=== PATIENT | female | born 1935 | race Caucasian/White ===

== ENCOUNTER 2018-04-01 07:57 | Emergency (ER) | payer OTHER ==
[~2018-04-01] VITALS: Ht 165.1 cm; Wt 77.1 kg
[~2018-04-01 07:57] MED LIST: ACETAMINOPHEN650 M5 PO; ALPRAZOLAM; ASPIR 8181 MG PO; BISACODYL SUPP10 MG RE; CARAFATE 1 GM TA1 G1 PO; CELEXA20 MG PO; CELEXA40 MG PO; COLACE100 MG PO; ENOXAPARIN80 MG/0.8 SUBQ; EVISTA PO; GLYCOLAX POWDER17 G1 PO; LIPITOR 20 MG T20 M1 PO; LISINOPRIL20 MG PO; MECLIZINE HCL25 M1 PO; NITROGLYCERIN0.4 MG SL; NORVASC 2.5 MG2.5 M1 PO; PLAVIX 75 MG TA75 MG; PROTONIX40 M2 PO; SENNA PO; SPIRONOLACTONE; TOPROL XL50 MG PO; XANAX 0.25 MG0.25 MG PO
[2018-04-01 08:31] LABS: ABSOLUTE EOSINOPHILS 0.1 thou/uL (0.0-0.7); ABSOLUTE LYMPHOCYTES 1.1 thou/uL (0.8-5.3); ABSOLUTE MONOCYTES 0.3 thou/uL (0.0-1.2); ABSOLUTE NEUTROPHILS 3.7 thou/uL (1.6-8.1); BASOPHILS 0.9 %; EOSINOPHILS 1.4 %; HEMATOCRIT 42.6 % (37.0-47.0); HEMOGLOBIN 14.1 gm/dL (12.0-15.0); MCH 29.6 pg (26.0-34.0); MCHC 33.1 g/dL (28.0-37.0); MCV 89.4 fL (80.0-100.0); MONOCYTES 6.3 %; MPV 8.7 fl. (7.2-11.1); NUCLEATED RBCS 0 /100WBC; PLATELET COUNT* 205 thou/uL (150-400); POLYS 70.4 %; RBC 4.77 mil/uL (4.20-5.00); RDW-CV 14.3 % (10.5-14.5); WBC 5.2 thou/uL (4.0-11.0)
[2018-04-01 08:33] LABS: PROTIME 10.2 Seconds (9.20-11.50)
[2018-04-01 09:14] LABS: ANION GAP 9 mmol/L (7-16); BUN 14 mg/dL (7-18); CALCIUM 9.6 mg/dL (8.5-10.1); CHLORIDE 102 mmol/L (98-107); CO2 27 mmol/L (21-32); GLUCOSE 179 mg/dL (70-99); SODIUM 138 mmol/L (136-145)
[2018-04-01 09:25] LABS: ALBUMIN 3.8 g/dL (3.4-5.0); ALKALINE PHOSPHATASE 69 U/L (46-116); LIPASE 414 U/L (73-393); NT-PRO BRAIN NAT PEPTIDE 380 pg/mL (<300); SGOT 23 U/L (15-37); SGPT 24 U/L (30-65); TOTAL BILIRUBIN 0.6 mg/dL (<0.1-1.0); TOTAL PROTEIN 7.1 g/dL (6.4-8.2); TROPONIN-I LEVEL <0.06 ng/mL (<0.06)
--- NOTE | 2018-04-01 10:24 | EKG ---
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 04/01/18 1024 08 08 Cory Franks MD, [facility] /EPI
[2018-04-01 11:03] VITALS: BP 147/70
== END 2018-04-01 11:04 | disposition home or self-care (01) ==
LOC: M.ERS 07:57
PROVIDERS: Emergency Medicine
DX: R07.89 Other chest pain (principal); I10 Essential (primary) hypertension; Z90.721 Acquired absence of ovaries, unilateral; Z88.8 Allergy status to other drugs, medicaments and biological substances; Z87.891 Personal history of nicotine dependence

== ENCOUNTER 2018-07-13 05:29 | Inpatient (IN) | payer OTHER ==
[~2018-07-13] VITALS: Ht 165.1 cm; Wt 78.9 kg
[2018-07-13 05:31] VITALS: BP 174/75
[2018-07-13 06:01] LABS: ABSOLUTE BASOPHILS 0.1 thou/uL (0.0-0.2); ABSOLUTE EOSINOPHILS 0.2 thou/uL (0.0-0.7); ABSOLUTE LYMPHOCYTES 2.3 thou/uL (0.8-5.3); ABSOLUTE MONOCYTES 0.5 thou/uL (0.0-1.2); ABSOLUTE NEUTROPHILS 2.6 thou/uL (1.6-8.1); EOSINOPHILS 4.1 %; HEMATOCRIT 42.1 % (37.0-47.0); LYMPHOCYTES 40.9 %; MCH 29.9 pg (26.0-34.0); MCHC 33.1 g/dL (28.0-37.0); MCV 90.1 fL (80.0-100.0); MONOCYTES 8.4 %; MPV 8.8 fl. (7.2-11.1); NUCLEATED RBCS 0 /100WBC; PLATELET COUNT* 180 thou/uL (150-400); POLYS 45.6 %; RBC 4.67 mil/uL (4.20-5.00); RDW-CV 15.3 % (10.5-14.5); WBC 5.7 thou/uL (4.0-11.0)
[2018-07-13 06:08] LABS: PROTIME 10.2 Seconds (9.20-11.50)
[2018-07-13 06:11] LABS: ANION GAP 8 mmol/L (7-16); BUN 23 mg/dL (7-18); CALCIUM 8.7 mg/dL (8.5-10.1); CHLORIDE 103 mmol/L (98-107); CO2 26 mmol/L (21-32); CREATININE 0.9 mg/dL (0.6-1.3); GLUCOSE 105 mg/dL (70-99); POTASSIUM 4.5 mmol/L (3.5-5.1); SODIUM 137 mmol/L (136-145)
[2018-07-13 06:22] LABS: ALBUMIN 3.5 g/dL (3.4-5.0); ALKALINE PHOSPHATASE 64 U/L (46-116); NT-PRO BRAIN NAT PEPTIDE 342 pg/mL (<300); SGOT 23 U/L (15-37); SGPT 25 U/L (30-65); TOTAL BILIRUBIN 0.5 mg/dL (<0.1-1.0); TROPONIN-I LEVEL <0.06 ng/mL (<0.06)
[2018-07-13 07:33] LABS: URINE COLOR YELLOW
[2018-07-13 07:34] LABS: URINE BILIRUBIN NEGATIVE (Negative); URINE BLOOD TRACE (Negative); URINE CLARITY CLEAR; URINE GLUCOSE-RANDOM NEGATIVE (Negative); URINE KETONES NEGATIVE (Negative); URINE LEUKOCYTES-REFLEX NEGATIVE (Negative); URINE NITRITE-REFLEX NEGATIVE (Negative); URINE PROTEIN NEGATIVE (Negative); URINE UROBILINOGEN 0.2 E.U./dl (0.2-1.0)
--- NOTE | 2018-07-13 08:36 | NUR ---
KASSI NOTIFIED UPON PT RETURN FROM CT.PT CONNECTED TO O2 AND REMAINS CONNECTED TO THE MONITOR IN WHICH SHE TRAVELED
[2018-07-13 09:31] VITALS: BP 140/65
[2018-07-13 10:00] VITALS: BP 155/62
--- NOTE | 2018-07-13 11:09 | EKG ---
[place] [address] ELECTROCARDIOGRAM REPORT Name: KATHRINE MAGAÑA Room: [address] ADM IN [facility]#: [id number] Admission: 07/13/18 Attend Phys: Leandra Da Silva MD Discharge: Date of : 35 Report #: [id number] THIS REPORT FOR: //name// [facility] ED Test Date: 2018-07-13 Test Time: 05:34:25 Pat Name: KATHRINE MAGAÑA Department: Room: 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 : 1935 Requested By: Debo Biswas Order Number: [id number] MD: Cory Franks Measurements Intervals [place] Rate: 77 P: 1 [place]: 163 QRS: 1 QRSD: 87 T: 97 QT: 385 QTc: 436 Interpretive Statements Sinus rhythm Probable LVH with secondary repol abnrm Compared to ECG 04/01/2018 08:03:07 Atrial premature complex(es) no longer present Electronically Signed On 07-13-2018 11:09:10 CDT by Cory Franks [email or web address] <ELECTRONICALLY SIGNED> By: Cory Franks MD, [facility] 07/13/18 1109 0534 0534 Cory Franks MD, [facility] /EPI
[2018-07-13 11:45] VITALS: BP 133/55
--- NOTE | 2018-07-13 13:44 | CON ---
[address] [address] CONSULTATION Name: KATHRINE MAGAÑA Margareth Room: [address] IN [facility]#: [id number] Admission: 07/13/18 Attend Phys: Leandra Da Silva MD Discharge: Date of : 35 Report #: [id number] THIS REPORT FOR: //name// CC: Leandra Arechiga MD DATE OF SERVICE: 07/13/2018 TYPE OF REPORT: Cardiology consultation. HISTORY OF THE PRESENT ILLNESS: The patient is an 82-year-old single white female who I was asked to see in the hospital today after she had an episode of chest warmness. The patient states that several years ago, she was feeling lightheaded. She was admitted to [place] and found to have 2-vessel coronary artery disease. She apparently underwent coronary artery bypass surgery, which she tolerated well. She has been followed by Dr. Webb every 6 months since that time. She is not very active but does go for walks in up stairs. She denies any exertional chest pain, dyspnea on exertion, palpitations or syncope. She does note that periodically she will get a warm sensation in her chest. It is not related to food or activity. She has had no trauma to her chest. It is not related to coughing. She has had no bleeding. She denies it is radiating to her jaw or arms. She will feel warm but denies being lightheaded or passing out. She has actually gone to the Emergency Room on a couple of occasions and sent home. She has been feeling well recently and then this morning, she was at home when she again had an episode where she felt gluing machine feeder her chest. Her heart was beating fast. She came to the Emergency Room and was admitted. PAST MEDICAL HISTORY: Otherwise significant for appendectomy, hysterectomy, cataract extraction, hypertension and hyperlipidemia. MEDICATIONS: Consists of aspirin, lisinopril, amlodipine, Celexa and Lipitor. ALLERGIES: She has no known drug allergies. FAMILY HISTORY: Positive for heart disease. SOCIAL HISTORY: She is , lives in [place]. Quit smoking years ago. No alcohol abuse. REVIEW OF SYSTEMS: She has had no history of stroke, asthma, peptic ulcer disease, liver disease or kidney disease. She has a skin cancer removed in the past. No psychiatric illness. No chronic skin condition. PHYSICAL EXAMINATION: [place] [address] CONSULTATION Name: KATHRINE MAGAÑA Room: [address]#: [id number] Admission: 07/13/18 Attend Phys: Leandra Da Silva MD Discharge: Date of : 35 Report #: [id number] GENERAL: Revealed an elderly female lying in bed. She appeared in no acute distress. VITAL SIGNS: She had a blood pressure of 140/60, pulse is 60 and she is afebrile. HEENT: She is anicteric and conjunctiva pink. Mucous membranes moist. NECK: Veins nondistended. No carotid bruits. Neck supple. CHEST: Clear to auscultation. CARDIOVASCULAR: Regular rate and rhythm. No murmur. ABDOMEN: Soft. EXTREMITIES: Had no edema. Dorsalis pedis pulse 2+ bilaterally. SKIN: Warm and dry. NEUROLOGICAL: Nonfocal. LYMPHATIC: No adenopathy. MUSCULOSKELETAL: No joint effusion. RADIOLOGICAL DATA: Her ECG on admission showed a sinus rhythm, left ventricular hypertrophy and repolarization changes. On the monitor, she was noted to have occasional PAC, occasional pause up to 1.8 seconds in duration. She did have an episode of a junctional rhythm. Workup she actually had previous echocardiogram here in 2015 that showed an ejection fraction of 50% with moderate tricuspid regurgitation. Workup in the Emergency Room, she had portable chest x-ray that showed no acute abnormality. CT scan of the chest using a PE protocol with contrast in the Emergency Room today showed no pulmonary embolus, only atelectasis. She had previous carotid Doppler study in 2015 that showed no significant stenosis. Previous CT scan of the head in 2015 showed atrophy, but no evidence of previous stroke. LABORATORY DATA: Sodium 137 and creatinine 0.9. Liver function studies were normal. Troponin 0.06. Her white blood cell count was 5.7 and hemoglobin 14. IMPRESSION AND RECOMMENDATIONS: 1. Chest heaviness. Rule out ischemia. Recommend Lexiscan Cardiolite. 2. Junctional rhythm. Possible sick sinus syndrome. The patient might require pacemaker. 3. Hypertension. The patient on a calcium winter and angiotensin-converting enzyme inhibitor. 4. Hyperlipidemia. The patient is on a statin drug. 5. Previous coronary artery bypass surgery. The patient does take aspirin 81 mg a day. 6. Palpitations. We will monitor for any arrhythmia. <ELECTRONICALLY SIGNED> By: Cory Franks MD, [facility] 07/13/18 1344 1035 [id number] Franks MD, [facility] /nt
--- NOTE | 2018-07-13 16:42 | CARDNUC ---
[place] [address] CARDIAC NUCLEAR IMAGING REPORT Name: KATHRINE MAGAÑA Room: [address] IN [facility]#: [id number] Admission: 07/13/18 Attend Phys: Leandra Da Silva, Discharge: Date of : 35 Date of Service: 07/13/18 1641 Report #: [id number] THIS REPORT FOR: //name// APPROVED REPORT Imaging Protocol: Rest Tc-99m/Stress Tc-99m 1 day Study performed: 07/13/2018 10:47:00 Indication: Chest pain Patient Location: In-Patient Stress Nurse: SOL Robles Tech:CANELO Castro Ht: 5 ft 5 in HR: 69 bpm BMI: 0 Rhythm: NSR Medical History Medical History: CAD s/p CABG Medications: Aspirin, Lisinopril, Amlodipine Allergies: Nitrates Cardiac Risk Factors: Age, HTN, Hyperlipidemia, FHX of CAD Previous Cardiac Procedures: CABG, PCI Resting Data Rest SPECT myocardial perfusion imaging was performed in supine position 30 minutes following the intravenous injection of 10.2 mCi of Tc-99m Sestamibi. Time of rest injection: 13:50 The images were gated to evaluate regional wall motion and calculate left ventricular ejection fraction. Administration Route: IV Administration Site: Right Arm Pharmacologic Stress Pharmacologic stress test was performed by injecting Regadenoson 0.4 mg IV push over 10-15 seconds immediately followed by the intravenous injection of 33.0 mCi of Tc-99m Sestamibi. Time of stress injection: 15:25 Administration Route: IV Administration Site: Right Arm Heart Rate at time of stress injection: 94 bpm. Gated Stress SPECT was performed 40 minutes after stress injection. The images were gated to evaluate regional [place] [address] CARDIAC NUCLEAR IMAGING REPORT Name: KATHRINE MAGAÑA Room: [address]#: [id number] Admission: 07/13/18 Attend Phys: Leandra Da Silva, Discharge: Date of : 35 Date of Service: 07/13/18 1641 Report #: [id number] left ventricular ejection fraction. Prone imaging was performed. Stress Test Details Stress Test: Pharmacologic stress testing performed using 0.4 mg of regadenoson per 5 mL given IV over 10 seconds. Reason for pharmacologic stress test: physical limitation. HR Max Heart Rate (APMHR): 138 bpm Resting HR: 69 bpm Target HR (85% APMHR): 117 bpm Max HR Achieved: 99 bpm % of APMHR: 71 Recovery HR: 94 bpm BP Resting BP: 171/91 mmHg Recovery BP: 166/79 mmHg ECG Resting ECG: Sinus Rhythm, normal EKG Stress ECG: Sinus Rhythm, normal EKG ST Change: None Arrhythmia: None Recovery ECG: Sinus Rhythm, normal EKG Recovery ST Change: None Recovery Arrhythmia: None Clinical The patient had no significant symptoms with Lexiscan infusion. Stress ECG Conclusion The baseline 12-lead EKG show sinus rhythm with no significant ST or T wave abnormalities. EKGs obtained during and post Lexiscan stress show sinus rhythm with no significant ST or T wave changes when compared to baseline. Study Quality Study: Good Artifact: No artifact Study Data At rest, the left ventricular ejection fraction was 70%.. Post stress, the left ventricular ejection was 73%.. TID = 1.03. [place] [address] CARDIAC NUCLEAR IMAGING REPORT Name: KATHRINE MAGAÑA Room: [address]#: [id number] Admission: 07/13/18 Attend Phys: Leandra Da Silva, Discharge: Date of : 35 Date of Service: 07/13/18 1641 Report #: [id number] Perfusion Normal left ventricular perfusion. Wall Motion Normal left ventricular wall motion. Nuclear Conclusion ECG Findings: negative for ischemia Clinical Findings: negative for ischemia Nuclear Findings: negative for ischemia Exercise Capacity: not assessed Left Ventricular Function: normal Risk Study: low Myocardial perfusion images show no defect to suggest infarct or ischemia. Left ventricular systolic function is normal on gated studies. This is a low risk study. <Conclusion> The baseline 12-lead EKG show sinus rhythm with no significant ST or T wave abnormalities. EKGs obtained during and post Lexiscan stress show sinus rhythm with no significant ST or T wave changes when compared to baseline. <ELECTRONICALLY SIGNED> By: Dennys Torres MD, FACC 07/13/181640 40 40 Dennys Torres MD, FACC /INF
--- NOTE | 2018-07-13 18:03 | NUR ---
PATIENT RESTING IN CHAIR. STRESS TESTING COMPLETED TODAY WITH LOW RISK FINDINGS. CONTINUE CARDIAC TELEMETRY TONIGHT AND POTENTIALLY GO HOME WITH HOLTER VEST. VITAL SIGNS STABLE. HOURY ROUNDING COMPLETD FOR PATIENT SAFETY.
[2018-07-13 20:00] VITALS: BP 122/57
[2018-07-14] VITALS: BP 125/63
--- NOTE | 2018-07-14 04:25 | NUR ---
ASSUMED PT CARE AT 1930. NURSING ASSESSMENT COMPLETED. 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 HOURLY ROUNDING COMPLETED, CALL LIGHT WITHIN REACH. VOICED NO CONCERNS.
[2018-07-14 05:11] VITALS: BP 139/60
[2018-07-14 05:49] LABS: CHOLESTEROL 147 mg/dL (<200); HDL CHOLESTEROL 74 mg/dL (>40); LDL CHOLESTEROL 61 mg/dL (<100); TRIGLYCERIDE 61 mg/dL (<150); VLDL 12 mg/dL (<40)
[2018-07-14 05:52] LABS: SERUM ASSESSMENT Clear
[2018-07-14 08:00] VITALS: BP 156/58
[2018-07-14 11:52] VITALS: BP 120/52
--- NOTE | 2018-07-14 12:19 | NUR ---
SW met with pt to complete initial assessment, introduce self, and SW role. Pt dtr in law visiting with pt. Pt alert, oriented, pleasant. Pt lives at home alone, pt ; pt dtr in law said that she updated that information yesterday. Pt independent with mobility and ADLs. Pt has a toilet riser but no other DME. Pt son Avery recently moved to [place]. Pt has another son in the area. Pt anticipates meeting with the senior mortgage underwriter today and then possibly receiving a pacemaker tomorrow depending on senior mortgage underwriter recommendations. Pt did not express any dc needs or questions at this time. SW to remain available to assist if needed.
[2018-07-14 16:00] VITALS: BP 132/59
--- NOTE | 2018-07-14 16:26 | 2DMMODE ---
[place] [address] 2 D/M-MODE ECHOCARDIOGRAM Name: KATHRINE MAGAÑA Room: [address] IN [facility]#: [id number] Admission: 07/13/18 Attend Phys: Leandra Da Silva, Discharge: Date of : 35 Date of Service: 07/14/18 1625 Report #: [id number] THIS REPORT FOR: //name// APPROVED REPORT Study performed: 07/14/2018 13:50:56 EXAM: Comprehensive 2D, Doppler, and color-flow Echocardiogram Patient Location: In-Patient Room #: [facility] Status: routine BSA: 1.86 HR: 69 bpm BP: 120/52 mmHg Rhythm: NSR Other Information Study Quality: Good Indications Bradycardia CAD Chest Pain 2D Dimensions LVEF(%): 83.60 (>50%) IVSd: 9.10 (7-11mm) LVOT Diam: 20.37 (18-24mm) LVDd: 47.95 mm PWd: 9.50 (7-11mm) Ascending Ao: 32.11 (22-36mm) LVDs: 22.73 (25-40mm) Aortic Root: 30.33 mm Foster's LVEF: 83.60 % Volumes Left Atrial Volume (Systole) LA ESV Index: 30.70 mL/m2 Aortic Valve AoV Peak Que.: 1.35 m/s AO Peak Gr.: 7.28 mmHg LVOT Max P.72 mmHg AO Mean Gr.: 4.18 mmHg LVOT Mean P.43 mmHg LVOT Max V: 1.20 m/s AO V2 VTI: 29.42 cm LVOT Mean V: 0.70 m/s SUSI (VTI): 2.89 cm2 LVOT V1 VTI: 26.06 cm AI [place]: 2.04 m/s2 [place] [address] 2 D/M-MODE ECHOCARDIOGRAM Name: KATHRINE MAGAÑA Room: [address] IN .R.#: [id number] Admission: 07/13/18 Attend Phys: Leandra Da Silva, Discharge: Date of : 35 Date of Service: 07/14/18 1625 Report #: [id number] AI PHT: 482.01 ms Mitral Valve E/A Ratio: 1.69 MV Decel. Time: 194.76 ms MV E Max Que.: 0.89 m/s MV PHT: 56.48 ms MVA (PHT): 3.90 cm2 TDI E/Lateral E': 8.09 E/Medial E': 8.90 Medial E' Que.: 0.10 m/s Lateral E' Que.: 0.11 m/s Pulmonary Valve PV Peak Que.: 0.99 m/s PV Peak Gr.: 3.92 mmHg Tricuspid Valve RAP Estimate: 5.00 mmHg TR Peak Gr.: 31.30 mmHg RVSP: 36.30 mmHg PA Pressure: 36.30 mmHg Left Ventricle The left ventricle is normal size. There is normal LV segmental wall motion. There is normal left ventricular wall thickness. Left ventricular systolic function is normal. LVEF is 65-70%. Transmitral Doppler flow pattern suggests impaired LV relaxation. Right Ventricle Right ventricle is dilated. The right ventricular systolic function is normal. Atria The left atrium size is normal. Right atrium is dilated. Aortic Valve The aortic valve is normal in structure. Moderate aortic regurgitation. There is no aortic valvular stenosis. Mitral Valve The mitral valve is normal in structure. Trace mitral regurgitation. No evidence of mitral valve stenosis. Tricuspid Valve The tricuspid valve is normal in structure. Moderate tricuspid regurgitation. Mild [place] [address] 2 D/M-MODE ECHOCARDIOGRAM Name: KATHRINE MAGAÑA Room: [address] IN [facility]#: [id number] Admission: 07/13/18 Attend Phys: Leandra Da Silva, Discharge: Date of : 35 Date of Service: 07/14/18 1625 Report #: [id number] Pulmonic Valve The pulmonary valve is normal in structure. Trace pulmonic regurgitation. Great Vessels The aortic root is normal in size. IVC is not well visualized. Pericardium There is no pericardial effusion. <Conclusion> The left ventricle is normal size. There is normal left ventricular wall thickness. Left ventricular systolic function is normal. LVEF is 65-70%. Transmitral Doppler flow pattern suggests impaired LV relaxation. Right atrium is dilated. Moderate aortic regurgitation. Trace mitral regurgitation. Moderate tricuspid regurgitation. Mild pulmonary hypertension. <ELECTRONICALLY SIGNED> By: Dennys Torres MD, FACC 07/14/18 1625 1625 1625 Dennys Torres MD, FACC /INF
--- NOTE | 2018-07-14 17:13 | EKG ---
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: : 1935 Requested By: Cory Franks Order Number: [id number] Reading MD: Cory Franks Measurements Intervals [place] Rate: 73 P: 25 [place]: 176 QRS: 25 QRSD: 87 T: 99 QT: 398 QTc: 439 Interpretive Statements Sinus rhythm septal infarct, old Nonspecific T abnormalities, lateral leads Compared to ECG 07/13/2018 05:34:25 no change Electronically Signed On 07-14-2018 17:13:23 CDT by Cory Franks [email or web address] <ELECTRONICALLY SIGNED> By: Cory Franks MD, [facility] 07/14/18 8883 8 8 Cory Franks MD, [facility] /EPI
[2018-07-14 20:00] VITALS: BP 136/60
[2018-07-15] VITALS (9 sets, daily range): BP systolic 102–148; BP diastolic 46–75
--- NOTE | 2018-07-15 04:38 | NUR ---
ASSUMED PT CARE AT 1930. NURSING ASSESSMENT COMPLETED AT START OF SHIFT. 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 HOURLY ROUNDING COMPLETED, CALL LIGHT WITHIN REACH. VOICED NO CONCERNS THIS SHIFT.
--- NOTE | 2018-07-15 10:18 | NUR ---
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
[2018-07-15] MEDS ORDERED: AMLODIPINE BESYL5 M1 PO (17:47)
--- NOTE | 2018-07-15 19:16 | CARD ---
[address] [address] CARDIAC CATH REPORT Name: KATHRINE MAGAÑA Margareth Room: [address] IN [facility]#: [id number] Admission: 07/13/18 Attend Phys: Leandra Da Silva MD Discharge: Date of : 35 Report #: [id number] THIS REPORT FOR: //name// APPROVED REPORT Study performed: 07/15/2018 12:20:39 Patient Status: In-Patient Room #: 212 Event Personnel: Cory Franks Family Engagement Specialist, Humera Rivera RN Building Associate, Ryanne Tobias Monitor, Hemanth Bauer (R) Scrub Exam: Insertion of Dual Chamber Permanent Pacemaker Indications: Sick Sinus Syndrome The patient is a 82 year-old female with a history of Dizziness and vertigo. Conscious Sedation Start time: 13:20 End Time: 15:05 Fentanyl 125 mcg Versed 6 mg Implanted Devices: permanent biotronic mri compatible pacemaker and leads Procedure The patient underwent informed consent. We discussed the details of the procedure including the risks, which include, but not limited to bleeding, infection, vascular damage, cardiac perforation, and pneumothorax. She understood these risks and was willing to proceed. As such, she was brought to the EP/Cardiac Catheterization laboratory in a fasting and sedated state and prepped and draped in a sterile fashion, received IV antibiotics prior to initiation of the procedure and a venogram was performed showing patency of the left axillary vein. The patient underwent conscious sedation, with no related complications. The patient was brought to the EP/Cardiac Catheterization laboratory and the left chest and shoulder were prepped and draped in a sterile manner. During this case, Fluoroscopy and low osmolar contrast were used for imaging. The left subclavian region was infiltrated with 2% Lidocaine subcutaneous anesthesia. A transverse incision was made in the left upper chest cavity. The subcutaneous pocket was formed [place] [address] CARDIAC CATH REPORT Name: KATHRINE MAGAÑA Room: [address] IN ..#: [id number] Admission: 07/13/18 Attend Phys: Leandra Da Silva MD Discharge: Date of : 35 Report #: [id number] venous access was achieved and an introducer sheath was inserted into the left Subclavian vein. Sheaths were positions using the modified Seldinger technique Through the introducer sheaths the atrial and ventricular lead wires were positioned in the right atrial appendage and right ventricular apex respectively. Utilizing fluoroscopic guidance, the atrial and ventricular lead wires were advanced over the wires and positioned in the right atria and right ventricle respectively. Capturing and sensing thresholds were verified. Electrode Parameters P Wave: 1.8 mv R Wave: 10.3 mv Atrial Threshold: 0.8 v @ 0.4 ms Ventricular Threshold: 1.2 v @ .4 ms Atrial Resistance: 487 ohm Ventricular Resistance: 838 Dual Chamber The atrial and ventricular leads were then secured using 0 silk sutures. The subcutaneous pocket was irrigated with ancef antibiotic solution.The atrial and ventricular leads were attached to the appropriate receptacles on the pulse generator and set screws firmly tightened to insure adequate contact and stability. The lead and pulse generator were placed into the subcutaneous pocket. Sharp and sponge counts were confirmed to be correct. At this time the pocket was closed subcutaneously with a 0 Vicryl and the skin was closed with a 4.0 Vicryl. The operative site was dressed in sterile fashion with skin affix and the patient was transferred to the floor in stable condition. Complications The patient tolerated the procedure well and there were no complications associated with the procedure. Findings Estimated Blood Loss: 5 cc Conclusion successful placement of a dual chamber pacemaker and leads <ELECTRONICALLY SIGNED> By: Cory Franks MD, [facility] 07/15/181915 15 15Daviizzy Franks MD, FAC /INF
[2018-07-16] VITALS: BP 137/61
--- NOTE | 2018-07-16 03:51 | NUR ---
ASSUMED PT CARE AT 1930. NURSING ASSESSMENT COMPLETED. SLING TO LEFT ARM IN PLACE. CONTINUES ON BEDREST UNTIL 8 AM PER CARDIOLOGY. 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 HOURLY ROUNDING COMPLETED, CALL LIGHT WITHIN REACH.
[2018-07-16 04:00] VITALS: BP 136/69
[2018-07-16 08:00] VITALS: BP 127/54
--- NOTE | 2018-07-16 08:38 | NUR ---
ASSUMED CARE OF PT AT 0730. PT RESTING IN BED. MED TRONIC AT BEDSIDE EVALUATING PACEMAKER. PT A&0X4, DENIES ANY PAIN OR SHORTNESS OF BREATH. PT IS EXCITED TO BE OFF BEDREST THIS AM. PT TRACING A PACED RHYTHM ON THE LEAD PASTOR. ON RA SAT UPPER 90'S. PT UP SBA TO BATHROOM. SLING TO LUE- NWB LUE AND PT EDUCATED ON NOT LIFTING LUE ABOVE SHOULDER FOR 7 DAYS. PACEMAKER INCISION TO LEFT CHEST C/D/I. PT GOAL FOR TODAY IS CXR THIS AM AND DISCHARGE PLANNING. AM ASSESSMENT CHARTED. MEDICATIONS PER JAN. PT REPOSITIONS SELF. HOURLY ROUNDING OBSERVED. BED IN LOW POSITION. CALL LIGHT WITHIN REACH. WILL CONTINUE PLAN OF CARE.
[2018-07-16 10:47] VITALS: BP 127/54
--- NOTE | 2018-07-16 13:11 | NUR ---
DISCHARGE ORDERS RECEIVED. DISCHARGE INSTRUCTIONS, CARE NOTES AND FOLLOW UP APPTS GIVEN TO PT. PT COMMUNICATES UNDERSTANDING OF DISCHARGE TEACHING. IV'S AND STONE PLANER REMOVED. PT DISCHARGED WITH ALL BELONGINGS AND PAPERWORK VIA WHEELCHAIR WITH NURSING STAFF TO DAUGHTERS OWN PERSONAL VEHICLE.
--- NOTE | 2018-07-16 15:46 | EKG ---
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: : 1935 Requested By: Cory Franks Order Number: [id number] Jennifer MD: Dennys Torres Measurements Intervals [place] Rate: 65 P: 37 [place]: 180 QRS: 13 QRSD: 88 T: 84 QT: 415 QTc: 432 Interpretive Statements Sinus rhythm Compared to ECG 07/14/2018 09:19:35 Myocardial infarct finding no longer present T-wave abnormality no longer present Electronically Signed On 07-16-2018 15:46:05 CDT by Dennys Torres [email or web address] <ELECTRONICALLY SIGNED> By: Dennys Torres MD, [facility] 07/16/18 1546 0844 0844 Dennys Torres MD, [facility] /EPI
--- NOTE | 2018-07-16 15:46 | EKG ---
[place] [address] ELECTROCARDIOGRAM REPORT Name: KATHRINE MAGAÑA Room: [address] IN M.R.#: [id number] Admission: 07/13/18 Attend Phys: Leandra Da Silva MD Discharge: 07/16/18 Date of : 35 Report #: [id number] THIS REPORT FOR: //name// [facility] Test Date: 2018-07-16 Test Time: 08:45:34 Pat Name: KATHRINE MAGAÑA Department: Room: [address] Gender: F Cnc Service Technician: : 1935 Requested By: Cory Franks Order Number: [id number] MD: Dennys Torres Measurements Intervals [place] Rate: 70 P: [place]: 151 QRS: 16 QRSD: 90 T: 91 QT: 400 QTc: 432 Interpretive Statements Atrial-paced rhythm Compared to ECG 07/14/2018 09:19:35 Sinus rhythm no longer present Myocardial infarct finding no longer present T-wave abnormality no longer present Electronically Signed On 07-16-2018 15:46:12 CDT by Dennys Torres [email or web address] <ELECTRONICALLY SIGNED> By: Dennys Torres MD, FACC 07/16/18 1546 0845 0845 Dennys Torres MD, [facility] /EPI
== END 2018-07-16 13:11 | disposition home or self-care (01) | DRG 243 ==
LOC: M.ERS 05:29 → M.TBA-ER 08:57 → M.2W 08:57
PROVIDERS: Emergency Medicine; Internal Medicine Cardiovascular Disease; ADMIT Internal Medicine
PROC: 02H63JZ Insertion of Pacemaker Lead into Right Atrium, Percutaneous Approach (ICD-10-PCS; principal; 2018-07-15)
PROC: 0JH606Z Insertion of Pacemaker, Dual Chamber into Chest Subcutaneous Tissue and Fascia, Open Approach (ICD-10-PCS; principal; 2018-07-15)
PROC: 02HK3JZ Insertion of Pacemaker Lead into Right Ventricle, Percutaneous Approach (ICD-10-PCS; principal; 2018-07-15)
DX: I49.5 Sick sinus syndrome (principal); J98.11 Atelectasis; R07.9 Chest pain, unspecified; I10 Essential (primary) hypertension; I25.10 Atherosclerotic heart disease of native coronary artery without angina pectoris; E78.5 Hyperlipidemia, unspecified; I25.2 Old myocardial infarction; Z95.1 Presence of aortocoronary bypass graft; Z90.49 Acquired absence of other specified parts of digestive tract; Z90.710 Acquired absence of both cervix and uterus; Z87.891 Personal history of nicotine dependence; Z90.721 Acquired absence of ovaries, unilateral; Z79.82 Long term (current) use of aspirin; Z79.899 Other long term (current) drug therapy; Z88.8 Allergy status to other drugs, medicaments and biological substances; Z82.49 Family history of ischemic heart disease and other diseases of the circulatory system

== ENCOUNTER 2018-08-10 04:51 | Emergency (ER) | payer OTHER ==
[~2018-08-10] VITALS: Ht 165.1 cm; Wt 77.1 kg
[~2018-08-10 04:51] MED LIST changes: +AMLODIPINE BESYL5 M1 PO
[2018-08-10 05:39] LABS: ABSOLUTE BASOPHILS 0.1 thou/uL (0.0-0.2); ABSOLUTE EOSINOPHILS 0.2 thou/uL (0.0-0.7); ABSOLUTE LYMPHOCYTES 1.6 thou/uL (0.8-5.3); ABSOLUTE MONOCYTES 0.5 thou/uL (0.0-1.2); ABSOLUTE NEUTROPHILS 2.9 thou/uL (1.6-8.1); EOSINOPHILS 4.6 %; HEMATOCRIT 39.3 % (37.0-47.0); HEMOGLOBIN 12.9 gm/dL (12.0-15.0); LYMPHOCYTES 30.6 %; MCH 29.2 pg (26.0-34.0); MCHC 32.8 g/dL (28.0-37.0); MONOCYTES 8.8 %; MPV 8.1 fl. (7.2-11.1); NUCLEATED RBCS 0 /100WBC; PLATELET COUNT* 181 thou/uL (150-400); RBC 4.42 mil/uL (4.20-5.00); RDW-CV 14.1 % (10.5-14.5); WBC 5.3 thou/uL (4.0-11.0)
[2018-08-10 05:53] LABS: URINE BILIRUBIN NEGATIVE (Negative); URINE BLOOD TRACE (Negative); URINE CLARITY CLEAR; URINE COLOR YELLOW; URINE GLUCOSE-RANDOM NEGATIVE (Negative); URINE KETONES NEGATIVE (Negative); URINE LEUKOCYTES-REFLEX NEGATIVE (Negative); URINE NITRITE-REFLEX NEGATIVE (Negative); URINE PROTEIN NEGATIVE (Negative); URINE SPECIFIC GRAVITY 1.015 (1.005-1.030); URINE UROBILINOGEN 0.2 E.U./dl (0.2-1.0)
[2018-08-10 05:58] LABS: CALCIUM 8.9 mg/dL (8.5-10.1); CREATININE 0.9 mg/dL (0.6-1.3); POTASSIUM 3.9 mmol/L (3.5-5.1)
[2018-08-10 06:03] LABS: ALBUMIN 3.3 g/dL (3.4-5.0); TOTAL BILIRUBIN 0.4 mg/dL (<0.1-1.0); TOTAL PROTEIN 6.3 g/dL (6.4-8.2)
[2018-08-10 06:16] VITALS: BP 129/61
--- NOTE | 2018-08-10 09:25 | EKG ---
[place] [address] ELECTROCARDIOGRAM REPORT Name: KATHRINE MAGAÑA [id number] Admission: 08/10/18 Attend Phys: Discharge: 08/10/18 Date of : 35 Report #: [id number] THIS REPORT FOR: //name// [facility] ED Test Date: 2018-08-10 Test Time: 05:23:30 Pat Name: KATHRINE MAGAÑA Department: Room: Gender: F Hematologist: ALFREDO : 1935 Requested By: Debo Biswas Order Number: [id number] MD: Cory Franks Measurements Intervals [place] Rate: 72 P: [place]: 200 QRS: 8 QRSD: 89 T: 59 QT: 411 QTc: 450 Interpretive Statements Atrial-paced rhythm Probable anteroseptal infarct, old Compared to ECG 07/16/2018 08:45:34 no change Electronically Signed On 08-10-2018 9:25:26 CDT by Cory Franks [email or web address] <ELECTRONICALLY SIGNED> By: Cory Franks MD, [facility] 08/10/18 0925 2 2 Croy Franks MD, FACC /EPI
== END 2018-08-10 06:16 | disposition home or self-care (01) ==
LOC: M.ERS 04:51
PROVIDERS: Emergency Medicine
DX: I10 Essential (primary) hypertension (principal); Z95.1 Presence of aortocoronary bypass graft; Z87.891 Personal history of nicotine dependence; Z88.8 Allergy status to other drugs, medicaments and biological substances

== ENCOUNTER 2018-08-26 03:17 | Observation (INO) | payer OTHER ==
[~2018-08-26] VITALS: Ht 165.1 cm; Wt 82.6 kg
[2018-08-26 03:21] VITALS: BP 186/88
[2018-08-26 03:56] LABS: ABSOLUTE EOSINOPHILS 0.1 thou/uL (0.0-0.7); ABSOLUTE LYMPHOCYTES 1.1 thou/uL (0.8-5.3); ABSOLUTE MONOCYTES 0.6 thou/uL (0.0-1.2); BASOPHILS 0.8 %; HEMATOCRIT 41.4 % (37.0-47.0); HEMOGLOBIN 13.5 gm/dL (12.0-15.0); LYMPHOCYTES 19.1 %; MCH 29.4 pg (26.0-34.0); MCHC 32.6 g/dL (28.0-37.0); MCV 89.9 fL (80.0-100.0); MONOCYTES 9.7 %; MPV 8.2 fl. (7.2-11.1); NUCLEATED RBCS 0 /100WBC; PLATELET COUNT* 200 thou/uL (150-400); POLYS 68.4 %; RBC 4.61 mil/uL (4.20-5.00); RDW-CV 14.3 % (10.5-14.5); WBC 5.9 thou/uL (4.0-11.0)
[2018-08-26 04:05] LABS: ANION GAP 6 mmol/L (7-16); BUN 17 mg/dL (7-18); CALCIUM 9.2 mg/dL (8.5-10.1); CHLORIDE 103 mmol/L (98-107); CO2 28 mmol/L (21-32); CREATININE 0.9 mg/dL (0.6-1.3); GLUCOSE 123 mg/dL (70-99); SODIUM 137 mmol/L (136-145)
[2018-08-26 04:10] LABS: PROTIME 10.7 Seconds (9.20-11.50)
[2018-08-26 04:16] LABS: ALBUMIN 3.7 g/dL (3.4-5.0); ALKALINE PHOSPHATASE 70 U/L (46-116); NT-PRO BRAIN NAT PEPTIDE 384 pg/mL (<300); SGOT 22 U/L (15-37); SGPT 22 U/L (30-65); TOTAL BILIRUBIN 0.5 mg/dL (<0.1-1.0); TOTAL PROTEIN 6.8 g/dL (6.4-8.2); TROPONIN-I LEVEL <0.06 ng/mL (<0.06)
[2018-08-26] MEDS ORDERED: PEPCID20 MG PO (09:34)
[2018-08-26 09:35] VITALS: BP 143/61
[2018-08-26 10:17] VITALS: BP 143/61
--- NOTE | 2018-08-26 11:03 | EKG ---
[place] [address] ELECTROCARDIOGRAM REPORT Name: KATHRINE MAGAÑA Room: [address]R.#: [id number] Admission: 08/26/18 Attend Phys: Gregor Skelton Discharge: Date of : 35 Report #: [id number] THIS REPORT FOR: //name// [facility] ED Test Date: 2018-08-26 Test Time: 03:23:12 Pat Name: KATHRINE MAGAÑA Department: Room: [facility] Gender: F Geography Head: O : 1935 Requested By: Brenda Hanks Order Number: [id number] MD: Cory Franks Measurements Intervals [place] Rate: 85 P: 110 AR: 150 QRS: 11 QRSD: 85 T: 112 QT: 366 QTc: 436 Interpretive Statements Atrial-paced complexes septal infarct, old Compared to ECG 08/10/2018 05:23:30 atrial paced rhythm now noted Electronically Signed On 08-26-2018 11:02:51 CDT by Cory Franks [email or web address] <ELECTRONICALLY SIGNED> By: Cory Franks MD, [facility] 08/26/18 1102 0323 0323 Cory Franks MD, [facility] /EPI
--- NOTE | 2018-08-28 13:12 | CON ---
[address] [address] CONSULTATION Name: KATHRINE MAGAÑA Room: [address] Kojo [place]#: [id number] Admission: 08/26/18 Attend Phys: Gregor Skelton Discharge: 08/26/18 Date of : 35 Report #: [id number] THIS REPORT FOR: //name// CC: Cory Dugan DATE OF SERVICE: 08/26/2018 HISTORY OF PRESENT ILLNESS: The patient is an 83-year-old single white female who I was asked to see in the hospital today after she complained of a warm sensation in her chest. The patient has an extensive past medical history. Several years ago, she presented to [facility]. She is not sure why she was admitted. Apparently, she did not feel well. She was found to have coronary artery disease and apparently underwent 2-vessel coronary artery bypass surgery at [place]. The patient is not very active because of her age. Recently, she was having sensations where she would feel warm all over and lightheaded. She is admitted to [facility] on 07/12/2018 after she presented with an episode where she felt tube closing machine operator her chest. When she came to the Emergency Room, she was noted to have pauses up to 1.8 seconds of duration with episodes of a junctional rhythm. She underwent a nuclear stress test last month that showed ejection fraction of 70% with no evidence of ischemia. She had an echocardiogram done last month that showed ejection fraction of 65%, right atrial enlargement, moderate aortic insufficiency, moderate tricuspid insufficiency. I then implanted a permanent dual chamber pacemaker on 07/15/2018 when she was felt to have symptomatic bradycardia. She tolerated the procedure well. She actually underwent a CT scan of the chest, which showed no pulmonary embolus. Carotid Doppler study showed plaque formation. I actually saw her in the office a week later on 07/24/2018 and assessed her pacemaker. She was noted to have intermittent atrial pacing. There were normal thresholds or capture and sensing in both the atrium and ventricle. The pacemaker set at 60 beats per minute. She has had no more sensations of passing out. She denied any recent palpitations or shortness of breath. She awoke last night at 4 in the morning with a warm sensation in her chest. She denied any belching, blood in her stool. She denied any discomfort being related to food. There was no radiation to her arms, associated shortness of breath, diaphoresis, nausea. She drove herself to the Emergency Room and is being evaluated at this time. PAST MEDICAL HISTORY: Otherwise significant for previous appendectomy, hysterectomy, cataract extraction, hypertension, hyperlipidemia. MEDICATIONS: Consists of amlodipine, aspirin, atorvastatin, Celexa, lisinopril. ALLERGIES: She [place] [address] CONSULTATION Name: KATHRINE MAGAÑA Room: [address] [place]#: [id number] Admission: 08/26/18 Attend Phys: Gregor Skelton Discharge: 08/26/18 Date of : 35 Report #: [id number] FAMILY HISTORY: Her father had a heart attack. SOCIAL HISTORY: She is , lives in [place]. Quit smoking years ago. No alcohol abuse. REVIEW OF SYSTEMS: She has had no history of stroke, asthma, peptic ulcer disease, liver disease, kidney disease. She had a skin cancer removed in the past. No psychiatric illness. No chronic skin condition. PHYSICAL EXAMINATION: GENERAL: Revealed an elderly female, lying in bed. She appeared in no acute distress. VITAL SIGNS: She had a blood pressure of 150/70, pulse is 80, she is afebrile. HEENT: She was anicteric, conjunctiva pink. Mucous membranes moist. NECK: Neck veins nondistended. No carotid bruits. Neck supple. CHEST: Clear to auscultation. CARDIOVASCULAR: Regular rate and rhythm. ABDOMEN: Soft. EXTREMITIES: Had no edema. Dorsalis pedis pulse 2+ bilaterally. SKIN: Warm, dry. NEUROLOGIC: Nonfocal. LYMPHATICS: No adenopathy. MUSCULOSKELETAL: No joint effusion. RADIOLOGICAL DATA: ECG showed an atrial paced rhythm with nonspecific ST and T-wave changes. Her workup so far in the Emergency Room, she had portable chest x-ray that showed clear lung mena, normal pacemaker insertion. LABORATORY DATA: Sodium 137, creatinine 0.9. Liver function studies are normal. Troponin 0.06 on 2 sets. Her white blood cell count 5.9, hemoglobin 13.5. IMPRESSION AND RECOMMENDATIONS: 1. Warm sensation in her chest. No evidence of acute myocardial infarction. The patient had a stress test last month showing no ischemia. Suspect gastrointestinal. Recommend no further cardiac evaluation. 2. Hypertension. The patient is on a calcium winter and RAFFI inhibitor. 3. Sick sinus syndrome. Normal dual chamber pacemaker function. 4. Hyperlipidemia. The patient is on a statin drug. 5. Previous tobacco abuse. 6. Previous coronary artery bypass surgery. Nuclear stress test last month showed no ischemia. <ELECTRONICALLY SIGNED> By: Cory Franks MD, [facility] 08/28/18 1312 0908 1942David Cesar Franks MD, FACC /nt
== END 2018-08-26 10:15 | disposition home or self-care (01) ==
LOC: M.ERS 03:17 → M.TBA-ER 04:39
PROVIDERS: Personal Emergency Response Attendant; ADMIT Internal Medicine
DX: R07.89 Other chest pain (principal); I25.10 Atherosclerotic heart disease of native coronary artery without angina pectoris; I10 Essential (primary) hypertension; I25.2 Old myocardial infarction; I49.5 Sick sinus syndrome; E78.5 Hyperlipidemia, unspecified; Z95.1 Presence of aortocoronary bypass graft; Z98.890 Other specified postprocedural states; Z79.82 Long term (current) use of aspirin; Z95.0 Presence of cardiac pacemaker; Z90.710 Acquired absence of both cervix and uterus; Z87.891 Personal history of nicotine dependence; Z79.899 Other long term (current) drug therapy

== ENCOUNTER 2018-09-05 00:10 | Inpatient (IN) | payer OTHER ==
[~2018-09-05] VITALS: Ht 165.1 cm; Wt 74.4 kg
[2018-09-05] VITALS (7 sets, daily range): BP systolic 132–191; BP diastolic 56–81
[~2018-09-05 00:10] MED LIST changes: +PEPCID20 MG PO
[2018-09-05 00:35] LABS: ABSOLUTE BASOPHILS 0.1 thou/uL (0.0-0.2); ABSOLUTE EOSINOPHILS 0.2 thou/uL (0.0-0.7); ABSOLUTE LYMPHOCYTES 2.7 thou/uL (0.8-5.3); ABSOLUTE MONOCYTES 0.6 thou/uL (0.0-1.2); ABSOLUTE NEUTROPHILS 3.5 thou/uL (1.6-8.1); BASOPHILS 0.8 %; EOSINOPHILS 3.2 %; HEMATOCRIT 41.3 % (37.0-47.0); HEMOGLOBIN 13.6 gm/dL (12.0-15.0); LYMPHOCYTES 38.3 %; MCH 29.2 pg (26.0-34.0); MCHC 32.8 g/dL (28.0-37.0); MCV 88.9 fL (80.0-100.0); MPV 7.9 fl. (7.2-11.1); NUCLEATED RBCS 0 /100WBC; PLATELET COUNT* 230 thou/uL (150-400); POLYS 49.7 %; RBC 4.65 mil/uL (4.20-5.00); RDW-CV 14.3 % (10.5-14.5)
[2018-09-05 00:44] LABS: ANION GAP 9 mmol/L (7-16); BUN 15 mg/dL (7-18); CALCIUM 9.4 mg/dL (8.5-10.1); CHLORIDE 102 mmol/L (98-107); CO2 28 mmol/L (21-32); GLUCOSE 103 mg/dL (70-99); SODIUM 139 mmol/L (136-145)
[2018-09-05 00:47] LABS: PROTIME 10.5 Seconds (9.20-11.50)
[2018-09-05 00:55] LABS: ALBUMIN 3.7 g/dL (3.4-5.0); ALKALINE PHOSPHATASE 70 U/L (46-116); NT-PRO BRAIN NAT PEPTIDE 372 pg/mL (<300); SGOT 22 U/L (15-37); SGPT 23 U/L (30-65); TOTAL BILIRUBIN 0.5 mg/dL (<0.1-1.0); TROPONIN-I LEVEL <0.06 ng/mL (<0.06)
[2018-09-05 01:21] LABS: URINE BILIRUBIN NEGATIVE (Negative); URINE BLOOD NEGATIVE (Negative); URINE CLARITY CLEAR; URINE COLOR YELLOW; URINE GLUCOSE-RANDOM NEGATIVE (Negative); URINE KETONES NEGATIVE (Negative); URINE LEUKOCYTES-REFLEX NEGATIVE (Negative); URINE NITRITE-REFLEX NEGATIVE (Negative); URINE PROTEIN NEGATIVE (Negative); URINE UROBILINOGEN 0.2 E.U./dl (0.2-1.0)
--- NOTE | 2018-09-05 04:57 | NUR ---
RECEIVED REPORT FROM ED NURSE. PT TRANSFERRED TO 225. PT A&OX4. VSS. ADMISSION HISTORY AND PHYSICAL ASSESSMENT COMPLETED AND CHARTED. PT ON O2 AT 2L WITH 97% O2 SAT. PT TRACING SR ON TELE. PT UP STANDBY TO RESTROOM. DENIES ANY PAIN OR DISCOMFORT. ORIENTED TO ROOM & CALL LIGHT. DENIES ANY PAIN OR DISCOMFORT. CALL LIGHT WITHIN REACH. BED IN LOW POSITION.
--- NOTE | 2018-09-05 15:11 | NUR ---
Pt was asleep when CM went to assess, will f/u later
--- NOTE | 2018-09-05 17:02 | NUR ---
PT REMAINED ALERT AND ORIENTED THIS SHIFT. PT DENIED ANY PAIN. PT IS UP AD JOSE. IV FLUIDS INFUSING AT 70ML/HR IN RT FA. PT HAD VENOUS DOPPLER COMPLETED AND FOUND NO DVT BUT A LEFT BAKERS CYST.PT IS NSR ON THE MONITOR. HOURLY ROUNDING COMPLETED. WILL CONTINUE TO MONITOR.
--- NOTE | 2018-09-05 17:53 | NUR ---
REVIEWED AND AGREE WITH ALL CHARTING AND ASSESSMENTS COMPLETED BY GERALD Blackmon RN.
[2018-09-06 00:36] VITALS: BP 133/72
[2018-09-06 03:27] VITALS: BP 165/87
[2018-09-06 04:37] LABS: HEMATOCRIT 39.3 % (37.0-47.0); HEMOGLOBIN 12.9 gm/dL (12.0-15.0); MCH 29.4 pg (26.0-34.0); MCV 89.2 fL (80.0-100.0); MPV 8.1 fl. (7.2-11.1); RBC 4.4 mil/uL (4.20-5.00); RDW-CV 14.4 % (10.5-14.5); WBC 5.1 thou/uL (4.0-11.0)
[2018-09-06 05:00] LABS: CALCIUM 8.6 mg/dL (8.5-10.1); CREATININE 0.8 mg/dL (0.6-1.3); POTASSIUM 3.9 mmol/L (3.5-5.1)
--- NOTE | 2018-09-06 06:54 | NUR ---
PATIENT HAS BEEN ANXIOUS MOST OF THE NIGHT. C/O CHEST PAIN. EKG DONE. NOTIFIED AND NEW ORDERS GIVEN. MEDICATIONS GIVEN ORDERED AND CHARTED. ANXIETY MEDICATION GIVEN VIA IV PUSH, NITRO GIVEN X 1 AND ASA GIVEN X 1. TROPONINS ORDERED. IV IN RIGHT FOREARM- NS @ 70ML/HR. VSS ON RA ALTHOUGH BP ELEVATED. PATIENT INSTRUCTED TO USE CALL LIGHT WHEN NEEDING ASSISTANCE. HOURLY ROUNDS MADE. WILL CONTINUE WITH PLAN OF CARE AND NURSING TO MONITOR.
[2018-09-06 08:00] VITALS: BP 160/85
--- NOTE | 2018-09-06 11:27 | NUR ---
ASSUMED CARE OF PATIENT THIS AM AT 0730. PATIENT IS ALERT AND ORIENTED X 4. SHE DENIES PAIN THIS AM. TELE SHOWS SR WITH A 1ST DEGREE AVB. PATIENT HAS BEEN CALM AND COOPERATIVE WITH CARE. NO FALLS OR INJURY. PATIENT IS PROGRESSING TOWARDS GOALS.
[2018-09-06 11:46] VITALS: BP 137/62
[2018-09-06 15:20] VITALS: BP 137/77
[2018-09-06 19:20] VITALS: BP 151/78
--- NOTE | 2018-09-06 22:15 | NUR ---
INITIAL ASSESSMENT COMPLETE. PT A&O X 4 AND ABLE TO VOICE ALL NEEDS. PT DENIES PAIN, N/V/D. VSS. PT DENIES ANY FURTHER NEEDS AT THIS TIME. CLWR.
[2018-09-07 00:37] VITALS: BP 139/73
[2018-09-07 04:00] VITALS: BP 156/78
--- NOTE | 2018-09-07 05:52 | NUR ---
PT RESTED WELL FOR MOST OF THIS SHIFT, ALTHOUGH PT BECAME VERY ANXIOUS AROUND 0300. PRN BENADRYL GIVEN PER PT REQUEST WITH GOOD RESULTS. PT HAS BEEN UP TO BR WITH SBA, STEADY GAIT. CLWR.
[2018-09-07 08:00] VITALS: BP 152/70
--- NOTE | 2018-09-07 09:54 | EKG ---
[place] [address] ELECTROCARDIOGRAM REPORT Name: GÓMEZKATHRINE B Room: [address] ADM IN [facility]#: [id number] Admission: 09/05/18 Attend Phys: Sheldon John MD Discharge: Date of : 35 Report #: [id number] THIS REPORT FOR: //name// [facility] ED Test Date: 2018-09-05 Test Time: 00:15:00 Pat Name: KATHRINE MAGAÑA Department: Room: [facility] Gender: F Space Operations: : 1935 Requested By: Debo Biswas Order Number: [id number] MD: Cory Franks Measurements Intervals [place] Rate: 87 P: 37 OR: 136 QRS: 8 QRSD: 91 T: 89 QT: 356 QTc: 429 Interpretive Statements Sinus rhythm septal infarct, age indeterminate Compared to ECG 08/26/2018 03:23:12 Myocardial infarct finding still present Electronically Signed On 09-07-2018 9:54:19 CLOTH PIECER by Cory Franks [email or web address] <ELECTRONICALLY SIGNED> By: Cory Franks MD, [facility] 09/07/18 0954 0015 0015 Cory Franks MD, [facility] /EPI
[2018-09-07] MEDS ORDERED: XARELTO15 MG PO (10:48)
--- NOTE | 2018-09-07 11:36 | EKG ---
[place] [address] ELECTROCARDIOGRAM REPORT Name: GÓMEZKATHRINE B Room: [address] IN [facility].#: [id number] Admission: 09/05/18 Attend Phys: Sheldon John MD Discharge: Date of : 35 Report #: [id number] THIS REPORT FOR: //name// [facility] Test Date: 2018-09-06 Test Time: 03:59:15 Pat Name: KATHRINE MAGAÑA Department: Room: [address] Gender: F Vp Global Marketing [employer]: AP : 1935 Requested By: Sheldon John Order Number: [id number] Reading MD: Cory Franks Measurements Intervals [place] Rate: 72 P: 31 WI: 183 QRS: 1 QRSD: 87 T: 59 QT: 418 QTc: 458 Interpretive Statements Sinus rhythm septal infarct, old Minimal ST depression, lateral leads Electronically Signed On 09-07-2018 11:36:25 MANUFACTURING DESIGN ENGINEER by Cory Franks [email or web address] <ELECTRONICALLY SIGNED> By: Cory Franks MD, [facility] 09/07/18 1136 0359 0359 Cory Franks MD, FACC /EPI
--- NOTE | 2018-09-07 11:47 | EKG ---
[place] [address] ELECTROCARDIOGRAM REPORT Name: KATHRINE MAGAÑA Room: [address] ADM IN ..#: [id number] Admission: 09/05/18 Attend Phys: Sheldon John MD Discharge: Date of : 35 Report #: [id number] THIS REPORT FOR: //name// [facility] Test Date: 2018-09-07 Test Time: 08:43:00 Pat Name: KATHRINE MAGAÑA Department: Room: [address] Gender: F Glove Examiner: : 1935 Requested By: Leandra Da Silva Order Number: [id number] Reading MD: Cory Franks Measurements Intervals [place] Rate: 78 P: [place]: 209 QRS: -3 QRSD: 82 T: 78 QT: 389 QTc: 444 Interpretive Statements sinus rhythm Probable anteroseptal infarct, old Electronically Signed On 09-07-2018 11:47:32 MARINE FIREFIGHTER by Cory Franks [email or web address] <ELECTRONICALLY SIGNED> By: Cory Franks MD, [facility] 09/07/18 1147 0843 0843 Cory Franks MD, FACC /EPI
[2018-09-07 12:00] VITALS: BP 128/68
--- NOTE | 2018-09-07 13:29 | NUR ---
CALLED IN PRESCRIPTION FOR XARELTO WRITTEN TO PT[facility] ON [address] IS $21 FOR THE 15MG BID X 3 WEEKS AND $30 FOR THE 20MG DAILY X 6 MONTHS. WILL INFORM PT. AND GIVE HER A COUPON FOR XARELTO.
[2018-09-07 16:30] VITALS: BP 130/58
--- NOTE | 2018-09-07 16:34 | 2DMMODE ---
[place] [address] 2 D/M-MODE ECHOCARDIOGRAM Name: KATHRINE MAGAÑA Room: [address] IN [facility]#: [id number] Admission: 09/05/18 Attend Phys: Sheldon John, Discharge: Date of : 35 Date of Service: 09/07/18 1634 Report #: [id number] THIS REPORT FOR: //name// APPROVED REPORT Study performed: 09/07/2018 13:48:19 EXAM: Comprehensive 2D, Doppler, and color-flow Echocardiogram Patient Location: In-Patient Room #: [facility] Status: routine BSA: 1.82 HR: 71 bpm BP: 156/78 mmHg Other Information Study Quality: Good Indications Pulmonary Embolism 2D Dimensions IVSd: 10.14 (7-11mm) LVOT Diam: 20.08 (18-24mm) LVDd: 35.95 mm PWd: 8.51 (7-11mm) Ascending Ao: 29.34 (22-36mm) LVDs: 23.53 (25-40mm) Aortic Root: 31.33 mm Volumes Left Atrial Volume (Systole) LA ESV Index: 12.60 mL/m2 Aortic Valve AoV Peak Que.: 1.25 m/s AO Peak Gr.: 6.26 mmHg LVOT Max P.69 mmHg AO Mean Gr.: 3.68 mmHg LVOT Mean P.61 mmHg LVOT Max V: 1.19 m/s AO V2 VTI: 24.90 cm LVOT Mean V: 0.74 m/s SUSI (VTI): 3.38 cm2 LVOT V1 VTI: 26.57 cm Mitral Valve E/A Ratio: 0.67 MV Decel. Time: 279.71 ms MV E Max Que.: 0.50 m/s MV PHT: 81.12 [place] [address] 2 D/M-MODE ECHOCARDIOGRAM Name: KATHRINE MAGAÑA Room: [address] IN [facility]#: [id number] Admission: 09/05/18 Attend Phys: Sheldon John, Discharge: Date of : 35 Date of Service: 09/07/18 1634 Report #: [id number] MVA (PHT): 2.71 cm2 TDI E/Lateral E': 5.56 E/Medial E': 7.14 Medial E' Que.: 0.07 m/s Lateral E' Que.: 0.09 m/s Pulmonary Valve PV Peak Que.: 0.90 m/s PV Peak Gr.: 3.23 mmHg Tricuspid Valve RAP Estimate: 5.00 mmHg TR Peak Gr.: 25.60 mmHg RVSP: 30.60 mmHg PA Pressure: 30.60 mmHg Left Ventricle The left ventricle is normal size. There is normal LV segmental wall motion. There is normal left ventricular wall thickness. Left ventricular systolic function is normal. The left ventricular ejection fraction is within the normal range. LVEF is 55-60%. Grade I - abnormal relaxation pattern. Right Ventricle The right ventricle is normal size. The right ventricular systolic function is normal. Pacemaker lead is present in the right ventricle. Atria The left atrium size is normal. Pacemaker lead is present in the right atrium. The right atrium size is normal. Aortic Valve Aortic valve leaflets are mildly thickened. Mild aortic regurgitation. There is no aortic valvular stenosis. Mitral Valve The mitral valve is normal in structure. Mild mitral regurgitation. No evidence of mitral valve stenosis. Tricuspid Valve The tricuspid valve is normal in structure. Mild tricuspid regurgitation. estimated pa pressure 35 mm Hg Pulmonic Valve The pulmonary valve is normal in structure. There is no pulmonic [place] [address] 2 D/M-MODE ECHOCARDIOGRAM Name: GÓMEZKATHRINE Margareth Room: [address] IN [facility]#: [id number] Admission: 09/05/18 Attend Phys: Sheldon John, Discharge: Date of : 35 Date of Service: 09/07/18 1634 Report #: [id number] Great Vessels The aortic root is normal in size. IVC is normal in size and collapses >50% with inspiration. Pericardium There is no pericardial effusion. <Conclusion> LVEF is 55-60%. Aortic valve leaflets are mildly thickened. Mild mitral regurgitation. Mild aortic regurgitation. Mild tricuspid regurgitation. estimated pa pressure 35 mm Hg <ELECTRONICALLY SIGNED> By: Cory Franks MD, FACC 09/07/18 1634 1634 1634 Cory Franks MD, FACC /INF
[2018-09-07 16:43] VITALS: BP 128/68
--- NOTE | 2018-09-08 12:30 | CON ---
[address] [address] CONSULTATION Name: KATHRINE MAGAÑA Room: [address] IN .R.#: [id number] Admission: 09/05/18 Attend Phys: Sheldon John MD Discharge: 09/07/18 Date of : 35 Report #: [id number] THIS REPORT FOR: //name// CC: Sheldon Arechiga REASON FOR CONSULTATION: Pulmonary embolus. HISTORY OF PRESENT ILLNESS: This is an 83-year-old female patient with a past medical history of pacemaker placement. She presented to the hospital with chest discomfort she described as a burning sensation a few hours prior to hospitalization. She is just not feeling right. She has some diaphoresis, although she had no lightheadedness or dizziness. She would not call her feeling as a pain. She did not think her breathing has changed. She has remote history of smoking in the past. She smoked maybe for 15 years, but that was long time ago and never had been on oxygen or inhalers at home, never carried a diagnosis of lung disease. Her workup in the ER suggested possible PE and she was started on anticoagulation. She had history of pacemaker placement, as mentioned above. She has history of CABG also in the past. When I saw her this morning, she was on 2 liter oxygen, comfortable, speaking in full sentences, no distress and reports that the discomfort in her chest had resolved. She has no lower extremity edema or pain and no family history of clotting disorder. PAST MEDICAL HISTORY: Appendectomy, hysterectomy, cataract extraction, hypertension, hyperlipidemia, CABG in the past and coronary artery disease. PAST SURGICAL HISTORY: As above. FAMILY HISTORY: Negative for thromboembolic disease. Positive for coronary artery disease. SOCIAL HISTORY: She is . Quit smoking long time ago. Does not drink alcohol. REVIEW OF SYSTEMS: Twelve-point review of system reviewed with the patient and negative, other than as mentioned above. HOME MEDICATIONS: Aspirin, lisinopril, citalopram, famotidine and atorvastatin. ALLERGIES: NITRATE. PHYSICAL EXAMINATION: VITAL SIGNS: On examination, she is on 2 liter oxygen with saturation more than 90%, blood pressure 147/68, breathing 16 times a minute, pulse rate of 84 and temperature 36.7. [place] [address] CONSULTATION Name: KATHRINE MAGAÑA Room: [address]#: [id number] Admission: 09/05/18 Attend Phys: Sheldon John MD Discharge: 09/07/18 Date of : 35 Report #: [id number] GENERAL: Awake, alert, oriented, not in pain, not in distress, speaks in full sentences. HEENT: Head normocephalic, atraumatic. Pupils reactive to light. Not pale, not jaundiced. External ears look healthy and normal. Oral cavity, moist mucous membrane. Mallampati of 2. NECK: Supple. Full range of movement. No masses felt. CHEST: Clear to auscultation. No wheezing, no crackles. No tenderness. HEART: S1, S2. ABDOMEN: Soft, lax, benign and nontender. Positive bowel sounds. No masses felt. EXTREMITIES: Lower extremity, no edema, no calf tenderness. SKIN: Normal for age and race. No rash. LYMPHATICS: No palpable lymph nodes. NEUROLOGIC: Moving 4 extremities spontaneously. No focal weakness. Cranial nerves are grossly normal. LABORATORY DATA: White blood cell count 7, hemoglobin 15.6 and platelets of 230,000. Her INR is 1. D-dimer elevated. Her creatinine is 1 with a potassium of 4, sodium 139 and BUN of 15. Her chest x-ray in the ER did not show acute cardiopulmonary process. Her CTA showed possible small PE in the right upper lobe, although the final report is pending. The ER note indicated possible PE. IMPRESSION: 1. Acute pulmonary embolus. 2. History of coronary artery disease. 3. Chest pain. PLAN: At this point, I agree with the Doppler ultrasound of the lower extremities for further evaluation. Continue anticoagulation. Recommend anticoagulation for 3-6 months and re-evaluate by repeating CTA of the chest. We can start weaning oxygen down and can switch her to p.o. anticoagulation. Thank you for the consult. <ELECTRONICALLY SIGNED> By: Suresh Jenkins MD 09/08/18 1230 0838 1219Suresh Jenkins MD /nt
== END 2018-09-07 17:00 | disposition home or self-care (01) | DRG 175 ==
LOC: M.ERS 00:10 → M.TBA-ER 01:51 → M.2W 01:51
PROVIDERS: Emergency Medicine; Internal Medicine; ADMIT Internal Medicine
DX: I26.99 Other pulmonary embolism without acute cor pulmonale (principal); J96.00 Acute respiratory failure, unspecified whether with hypoxia or hypercapnia; I10 Essential (primary) hypertension; E78.5 Hyperlipidemia, unspecified; F41.9 Anxiety disorder, unspecified; I25.10 Atherosclerotic heart disease of native coronary artery without angina pectoris; Z88.8 Allergy status to other drugs, medicaments and biological substances; I25.2 Old myocardial infarction; Z82.49 Family history of ischemic heart disease and other diseases of the circulatory system; Z87.891 Personal history of nicotine dependence; Z90.721 Acquired absence of ovaries, unilateral; Z95.1 Presence of aortocoronary bypass graft; Z95.0 Presence of cardiac pacemaker; Z79.82 Long term (current) use of aspirin; Z79.899 Other long term (current) drug therapy; Z98.49 Cataract extraction status, unspecified eye; Z90.710 Acquired absence of both cervix and uterus

== ENCOUNTER 2018-09-17 03:42 | Emergency (ER) | payer OTHER ==
[~2018-09-17] VITALS: Ht 165.1 cm; Wt 74.8 kg
[~2018-09-17 03:42] MED LIST changes: +XARELTO15 MG PO
[2018-09-17 04:31] LABS: ABSOLUTE BASOPHILS 0.1 thou/uL (0.0-0.2); ABSOLUTE EOSINOPHILS 0.2 thou/uL (0.0-0.7); ABSOLUTE LYMPHOCYTES 1.6 thou/uL (0.8-5.3); ABSOLUTE MONOCYTES 0.5 thou/uL (0.0-1.2); ABSOLUTE NEUTROPHILS 2.6 thou/uL (1.6-8.1); BASOPHILS 1.2 %; EOSINOPHILS 4.4 %; HEMATOCRIT 40.3 % (37.0-47.0); HEMOGLOBIN 13.2 gm/dL (12.0-15.0); LYMPHOCYTES 32.7 %; MCH 29.4 pg (26.0-34.0); MCHC 32.6 g/dL (28.0-37.0); MCV 90.1 fL (80.0-100.0); MPV 8.3 fl. (7.2-11.1); NUCLEATED RBCS 0 /100WBC; PLATELET COUNT* 200 thou/uL (150-400); POLYS 52.7 %; RBC 4.48 mil/uL (4.20-5.00); RDW-CV 14.6 % (10.5-14.5)
[2018-09-17 04:46] LABS: ANION GAP 9 mmol/L (7-16); BUN 16 mg/dL (7-18); CALCIUM 9.1 mg/dL (8.5-10.1); CHLORIDE 104 mmol/L (98-107); CO2 27 mmol/L (21-32); CREATININE 0.9 mg/dL (0.6-1.3); GLUCOSE 100 mg/dL (70-99); POTASSIUM 4.1 mmol/L (3.5-5.1); SODIUM 140 mmol/L (136-145)
[2018-09-17 04:55] LABS: APTT 36.9 Seconds (25.0-31.3); INR 1.2
[2018-09-17 05:04] LABS: ALBUMIN 3.3 g/dL (3.4-5.0); ALKALINE PHOSPHATASE 66 U/L (46-116); CK-MB MASS 1.6 ng/mL (<0.5-3.6); LIPASE 210 U/L (73-393); MAGNESIUM 1.9 mg/dL (1.8-2.4); NT-PRO BRAIN NAT PEPTIDE 335 pg/mL (<300); SGOT 18 U/L (15-37); SGPT 20 U/L (30-65); TOTAL BILIRUBIN 0.4 mg/dL (<0.1-1.0); TOTAL PROTEIN 6.3 g/dL (6.4-8.2); TROPONIN-I LEVEL <0.06 ng/mL (<0.06)
[2018-09-17 05:24] VITALS: BP 160/71
--- NOTE | 2018-09-17 17:28 | EKG ---
[place] [address] ELECTROCARDIOGRAM REPORT Name: KATHRINE MAGAÑA Room: [facility]#: [id number] Admission: 09/17/18 Attend Phys: Discharge: 09/17/18 Date of : 35 Report #: [id number] THIS REPORT FOR: //name// [facility] ED Test Date: 2018-09-17 Test Time: 03:46:31 Pat Name: KATHRINE MAGAÑA Department: Room: Gender: F Merchandising Coordinator: KYLEE : 1935 Requested By: Scooter Barrera Order Number: [id number] MD: Dennys Torres Measurements Intervals [place] Rate: 83 P: 88 HI: 173 QRS: 28 QRSD: 87 T: 105 QT: 360 QTc: 423 Interpretive Statements Sinus rhythm Anteroseptal infarct, old, possible Nonspecific T abnormalities, lateral leads Compared to ECG 09/07/2018 08:43:00 T-wave abnormality now present Myocardial infarct finding still present Electronically Signed On 09-17-2018 17:28:00 MARKET BASKET MAKER by Dennys Torres [email or web address] <ELECTRONICALLY SIGNED> By: Dennys Torres MD, FACC 09/17/18 1728 0346 0346 Dennys Torres MD, [facility] /EPI
== END 2018-09-17 05:25 | disposition home or self-care (01) ==
LOC: M.ERS 03:42
PROVIDERS: Family Medicine
DX: R00.2 Palpitations (principal); I10 Essential (primary) hypertension; Z87.891 Personal history of nicotine dependence; Z88.8 Allergy status to other drugs, medicaments and biological substances; I25.10 Atherosclerotic heart disease of native coronary artery without angina pectoris; Z95.1 Presence of aortocoronary bypass graft; Z90.721 Acquired absence of ovaries, unilateral

== ENCOUNTER 2018-09-27 01:49 | Emergency (ER) | payer OTHER ==
[~2018-09-27] VITALS: Ht 165.1 cm; Wt 74.8 kg
[2018-09-27 02:08] LABS: ABSOLUTE BASOPHILS 0.1 thou/uL (0.0-0.2); ABSOLUTE EOSINOPHILS 0.3 thou/uL (0.0-0.7); ABSOLUTE MONOCYTES 0.5 thou/uL (0.0-1.2); ABSOLUTE NEUTROPHILS 3.4 thou/uL (1.6-8.1); BASOPHILS 1.1 %; EOSINOPHILS 4.1 %; HEMATOCRIT 40.9 % (37.0-47.0); HEMOGLOBIN 13.5 gm/dL (12.0-15.0); LYMPHOCYTES 31.8 %; MCH 29.5 pg (26.0-34.0); MCHC 32.9 g/dL (28.0-37.0); MCV 89.5 fL (80.0-100.0); MONOCYTES 8.8 %; MPV 7.8 fl. (7.2-11.1); NUCLEATED RBCS 0 /100WBC; PLATELET COUNT* 223 thou/uL (150-400); POLYS 54.2 %; RBC 4.56 mil/uL (4.20-5.00); RDW-CV 14.7 % (10.5-14.5); WBC 6.2 thou/uL (4.0-11.0)
[2018-09-27 02:16] LABS: ANION GAP 9 mmol/L (7-16); BUN 20 mg/dL (7-18); CALCIUM 9.4 mg/dL (8.5-10.1); CHLORIDE 103 mmol/L (98-107); CO2 26 mmol/L (21-32); GLUCOSE 104 mg/dL (70-99); POTASSIUM 3.8 mmol/L (3.5-5.1); SODIUM 138 mmol/L (136-145)
[2018-09-27 02:19] LABS: INR 1.2; PROTIME 12.3 Seconds (9.20-11.50)
[2018-09-27 02:27] LABS: ALBUMIN 3.6 g/dL (3.4-5.0); ALKALINE PHOSPHATASE 67 U/L (46-116); LIPASE 236 U/L (73-393); NT-PRO BRAIN NAT PEPTIDE 249 pg/mL (<300); SGOT 19 U/L (15-37); SGPT 21 U/L (30-65); TOTAL BILIRUBIN 0.5 mg/dL (<0.1-1.0); TOTAL PROTEIN 6.7 g/dL (6.4-8.2); TROPONIN-I LEVEL <0.06 ng/mL (<0.06)
[2018-09-27 02:50] LABS: URINE BILIRUBIN NEGATIVE (Negative); URINE BLOOD TRACE (Negative); URINE CLARITY CLEAR; URINE COLOR YELLOW; URINE GLUCOSE-RANDOM NEGATIVE (Negative); URINE KETONES NEGATIVE (Negative); URINE LEUKOCYTES-REFLEX NEGATIVE (Negative); URINE NITRITE-REFLEX NEGATIVE (Negative); URINE PROTEIN NEGATIVE (Negative); URINE SPECIFIC GRAVITY <= 1.005 (1.005-1.030); URINE UROBILINOGEN 0.2 E.U./dl (0.2-1.0)
[2018-09-27 06:18] VITALS: BP 182/87
--- NOTE | 2018-09-27 12:18 | EKG ---
[place] [address] ELECTROCARDIOGRAM REPORT Name: KATHRINE MAGAÑA [id number] Admission: 09/27/18 Attend Phys: Discharge: 09/27/18 Date of : 35 Report #: [id number] THIS REPORT FOR: //name// [facility] ED Test Date: 2018-09-27 Test Time: 01:53:33 Pat Name: KATHRINEJAVON MAGAÑA Department: Room: Gender: F Research And Development Scientist: LINN : 1935 Requested By: Debo Biswas Order Number: [id number] MD: Orlando Allen Measurements Intervals [place] Rate: 82 P: [place]: 190 QRS: 2 QRSD: 87 T: 100 QT: 360 QTc: 421 Interpretive Statements a paced Probable anteroseptal infarct, old Nonspecific repol abnormality, lateral leads Compared to ECG 09/17/2018 03:46:31 Early repolarization now present Sinus rhythm no longer present T-wave abnormality no longer present Myocardial infarct finding still present Electronically Signed On 09-27-2018 12:18:29 PAYROLL TAX ANALYST by Orlando Allen [email or web address] <ELECTRONICALLY SIGNED> By: Orlando Allen MD, FACC 09/27/18 1218 0153 0153 Orlando Allen MD, FAC /EPI
--- NOTE | 2018-09-27 12:19 | EKG ---
[place] [address] ELECTROCARDIOGRAM REPORT Name: KATHRINE MAGAÑA Room: [facility]#: [id number] Admission: 09/27/18 Attend Phys: Discharge: 09/27/18 Date of : 35 Report #: [id number] THIS REPORT FOR: //name// [facility] ED Test Date: 2018-09-27 Test Time: 05:44:18 Pat Name: KATHRINEJAVON MAGAÑA Department: Room: Gender: F Aerial Photographer: TYRA : 1935 Requested By: Debo Biswas Order Number: [id number] Reading MD: Orlando Allen Measurements Intervals [place] Rate: 67 P: [place]: 192 QRS: 10 QRSD: 92 T: 66 QT: 407 QTc: 430 Interpretive Statements Atrial-paced complexes Probable anteroseptal infarct, old Compared to ECG 09/17/2018 03:46:31 Sinus rhythm no longer present T-wave abnormality no longer present Myocardial infarct finding still present Electronically Signed On 09-27-2018 12:18:54 MANAGER ADMINISTRATIVE by Orlando Allen [email or web address] <ELECTRONICALLY SIGNED> By: Orlando Allen MD, [facility] 09/27/18 1218 0544 0544 Orlando Allen MD, [facility] /EPI
== END 2018-09-27 06:19 | disposition home or self-care (01) ==
LOC: M.ERS 01:49
PROVIDERS: Emergency Medicine
DX: R07.89 Other chest pain (principal); I10 Essential (primary) hypertension; I25.10 Atherosclerotic heart disease of native coronary artery without angina pectoris; Z87.891 Personal history of nicotine dependence; Z88.8 Allergy status to other drugs, medicaments and biological substances; Z95.1 Presence of aortocoronary bypass graft; Z90.721 Acquired absence of ovaries, unilateral

== ENCOUNTER 2018-11-08 05:44 | Emergency (ER) | payer OTHER ==
[~2018-11-08] VITALS: Ht 165.1 cm; Wt 77.1 kg
[2018-11-08] MEDS ORDERED: NORVASC2.5 MG PO (05:58)
[2018-11-08] MEDS ORDERED: ELIQUIS5 MG PO (06:00)
[2018-11-08] MEDS ORDERED: VITAMIN D2000 UNIT PO (06:01)
[2018-11-08] MEDS ORDERED: GAS-X125 MG PO (06:02)
[2018-11-08 06:30] LABS: ABSOLUTE EOSINOPHILS 0.1 thou/uL (0.0-0.7); ABSOLUTE LYMPHOCYTES 1.3 thou/uL (0.8-5.3); ABSOLUTE MONOCYTES 0.5 thou/uL (0.0-1.2); ABSOLUTE NEUTROPHILS 2.4 thou/uL (1.6-8.1); BASOPHILS 0.9 %; HEMATOCRIT 41.2 % (37.0-47.0); HEMOGLOBIN 13.6 gm/dL (12.0-15.0); LYMPHOCYTES 30.4 %; MCH 29.7 pg (26.0-34.0); MCHC 33.1 g/dL (28.0-37.0); MCV 89.7 fL (80.0-100.0); MONOCYTES 10.7 %; MPV 8.2 fl. (7.2-11.1); NUCLEATED RBCS 0 /100WBC; PLATELET COUNT* 210 thou/uL (150-400); RBC 4.59 mil/uL (4.20-5.00); RDW-CV 14.7 % (10.5-14.5); WBC 4.4 thou/uL (4.0-11.0)
[2018-11-08 06:42] LABS: ANION GAP 8 mmol/L (7-16); BUN 24 mg/dL (7-18); CALCIUM 9.3 mg/dL (8.5-10.1); CHLORIDE 104 mmol/L (98-107); CO2 28 mmol/L (21-32); GLUCOSE 107 mg/dL (70-99); SODIUM 140 mmol/L (136-145)
[2018-11-08 06:46] LABS: INR 1.1; PROTIME 11.1 Seconds (9.20-11.50)
[2018-11-08 06:57] LABS: ALBUMIN 3.3 g/dL (3.4-5.0); ALKALINE PHOSPHATASE 59 U/L (46-116); LIPASE 142 U/L (73-393); NT-PRO BRAIN NAT PEPTIDE 236 pg/mL (<300); SGOT 21 U/L (15-37); SGPT 23 U/L (30-65); TOTAL BILIRUBIN 0.4 mg/dL (<0.1-1.0); TOTAL PROTEIN 6.5 g/dL (6.4-8.2); TROPONIN-I LEVEL <0.06 ng/mL (<0.06)
[2018-11-08] MEDS ORDERED: CARAFATE 1 GM TA1 G1 PO ×2 (08:13→08:24)
[2018-11-08 08:59] VITALS: BP 150/55
--- NOTE | 2018-11-08 10:17 | EKG ---
[place] [address] ELECTROCARDIOGRAM REPORT Name: KATHRINE MAGAÑA Room: [facility]#: [id number] Admission: 11/08/18 Attend Phys: Discharge: 11/08/18 Date of : 35 Report #: [id number] THIS REPORT FOR: //name// [facility] ED Test Date: 2018-11-08 Test Time: 05:54:10 Pat Name: KATHRINE MAGAÑA Department: Room: Gender: F Program Manufacturing Leader: JESSENIA : 1935 Requested By: Harshad Ahuja Order Number: [id number] MD: Cory Franks Measurements Intervals [place] Rate: 80 P: -23 [place]: 173 QRS: 8 QRSD: 84 T: 156 QT: 359 QTc: 415 Interpretive Statements Sinus rhythm artifact noted Probable anterior infarct, old Abnormal T, consider ischemia, lateral leads Compared to ECG 09/27/2018 05:44:18 T-wave abnormality now present Possible ischemia now present Myocardial infarct finding still present Electronically Signed On 11-08-2018 10:17:42 PROGRAMMING SPECIALIST by Cory Franks [email or web address] <ELECTRONICALLY SIGNED> By: Cory Franks MD, [facility] 11/08/18 1017 0554 0554 Cory Franks MD, [facility] /EPI
--- NOTE | 2018-11-08 10:18 | EKG ---
[place] [address] ELECTROCARDIOGRAM REPORT Name: KATHRINE MAGAÑA [id number] Admission: 11/08/18 Attend Phys: Discharge: 11/08/18 Date of : 35 Report #: [id number] THIS REPORT FOR: //name// [facility] ED Test Date: 2018-11-08 Test Time: 07:59:17 Pat Name: KATHRINE LINDERTERRY Department: Room: Gender: F Architectural Renderer: : 1935 Requested By: Martín Wright Order Number: [id number] MD: Cory Franks Measurements Intervals [place] Rate: 76 P: [place]: 200 QRS: 13 QRSD: 86 T: 104 QT: 390 QTc: 439 Interpretive Statements sinus rhythm Probable LVH with secondary repol abnrm Electronically Signed On 11-08-2018 10:18:31 SNOW MAKER by Cory Franks [email or web address] <ELECTRONICALLY SIGNED> By: Cory Franks MD, [facility] 11/08/18 1018 0759 0759 Cory Franks MD, [facility] /EPI
== END 2018-11-08 09:00 | disposition home or self-care (01) ==
LOC: M.ERS 05:44
PROVIDERS: Emergency Medicine
DX: R10.13 Epigastric pain (principal); R53.1 Weakness; I10 Essential (primary) hypertension; I25.10 Atherosclerotic heart disease of native coronary artery without angina pectoris; Z87.891 Personal history of nicotine dependence; Z88.8 Allergy status to other drugs, medicaments and biological substances; Z95.1 Presence of aortocoronary bypass graft; Z90.721 Acquired absence of ovaries, unilateral

== ENCOUNTER 2018-11-10 08:12 | Emergency (ER) | payer OTHER ==
[~2018-11-10] VITALS: Ht 165.1 cm; Wt 77.1 kg
[~2018-11-10 08:12] MED LIST changes: +ELIQUIS5 MG PO; +GAS-X125 MG PO; +NORVASC2.5 MG PO; +VITAMIN D2000 UNIT PO
[2018-11-10 09:20] LABS: ABSOLUTE BASOPHILS 0.1 thou/uL (0.0-0.2); ABSOLUTE LYMPHOCYTES 1.1 thou/uL (0.8-5.3); ABSOLUTE MONOCYTES 0.4 thou/uL (0.0-1.2); ABSOLUTE NEUTROPHILS 3.2 thou/uL (1.6-8.1); BASOPHILS 1.2 %; EOSINOPHILS 0.7 %; LYMPHOCYTES 22.6 %; MCH 29.1 pg (26.0-34.0); MCHC 32.6 g/dL (28.0-37.0); MCV 89.3 fL (80.0-100.0); MONOCYTES 7.6 %; MPV 8.3 fl. (7.2-11.1); NUCLEATED RBCS 0 /100WBC; PLATELET COUNT* 222 thou/uL (150-400); POLYS 67.9 %; RBC 4.82 mil/uL (4.20-5.00); RDW-CV 14.6 % (10.5-14.5); WBC 4.7 thou/uL (4.0-11.0)
[2018-11-10 09:25] LABS: ANION GAP 8 mmol/L (7-16); BUN 18 mg/dL (7-18); CALCIUM 9.2 mg/dL (8.5-10.1); CHLORIDE 104 mmol/L (98-107); CO2 27 mmol/L (21-32); CREATININE 0.9 mg/dL (0.6-1.3); GLUCOSE 107 mg/dL (70-99); SODIUM 139 mmol/L (136-145)
[2018-11-10 09:32] LABS: ALBUMIN 3.5 g/dL (3.4-5.0); ALKALINE PHOSPHATASE 59 U/L (46-116); SGOT 23 U/L (15-37); SGPT 26 U/L (30-65); TOTAL BILIRUBIN 0.5 mg/dL (<0.1-1.0); TOTAL PROTEIN 6.8 g/dL (6.4-8.2); TROPONIN-I LEVEL <0.06 ng/mL (<0.06)
[2018-11-10 09:45] LABS: URINE BILIRUBIN NEGATIVE (Negative); URINE BLOOD TRACE (Negative); URINE CLARITY CLEAR; URINE COLOR YELLOW; URINE GLUCOSE-RANDOM NEGATIVE (Negative); URINE KETONES NEGATIVE (Negative); URINE LEUKOCYTES-REFLEX TRACE (Negative); URINE NITRITE-REFLEX NEGATIVE (Negative); URINE PROTEIN NEGATIVE (Negative); URINE UROBILINOGEN 0.2 E.U./dl (0.2-1.0)
[2018-11-10 10:08] LABS: BACTERIA-REFLEX 1-9 Few /HPF (None Seen); CASTS None Seen /LPF (None Seen); CRYSTALS None Seen /LPF (None Seen); MUCUS 0-3 Light strn/LPF (None Seen); SQUAMOUS 4-10 Moderate /LPF (0-3); URINE RBC 0-2 Rare /HPF (0-2); URINE WBC-REFLEX 0-5 Rare /HPF (0-5)
[2018-11-10] MEDS ORDERED: KEFLEX500 M1 PO (12:26)
[2018-11-10 12:38] VITALS: BP 170/75
--- NOTE | 2018-11-10 17:01 | EKG ---
[place] [address] ELECTROCARDIOGRAM REPORT Name: KATHRINE MAGAÑA Room: [facility]#: [id number] Admission: 11/10/18 Attend Phys: Discharge: 11/10/18 Date of : 35 Report #: [id number] THIS REPORT FOR: //name// [facility] ED Test Date: 2018-11-10 Test Time: 08:22:55 Pat Name: KATHRINE LINDERTERRY Department: Room: Gender: F Cafe Lead: LINN : 1935 Requested By: Brenda Hanks Order Number: [id number] MD: Dennys Torres Measurements Intervals [place] Rate: 75 P: 236 [place]: 185 QRS: 22 QRSD: 87 T: 85 QT: 423 QTc: 473 Interpretive Statements Atrial-paced complexes Anteroseptal infarct, old Nonspecific T abnormalities, lateral leads Compared to ECG 11/08/2018 07:59:17 Myocardial infarct finding now present T-wave abnormality now present Sinus rhythm no longer present Electronically Signed On 11-10-2018 17:01:41 [employer] POLICE OFFICER by Dennys Torres [email or web address] <ELECTRONICALLY SIGNED> By: Dennys Torres MD, FACC 11/10/18 1701 1 1 Dennys Torres MD, [facility] /EPI
== END 2018-11-10 12:39 | disposition home or self-care (01) ==
LOC: M.ERS 08:12
PROVIDERS: Personal Emergency Response Attendant
DX: N39.0 Urinary tract infection, site not specified (principal); I10 Essential (primary) hypertension; I25.10 Atherosclerotic heart disease of native coronary artery without angina pectoris; Z87.891 Personal history of nicotine dependence; Z88.8 Allergy status to other drugs, medicaments and biological substances; Z95.1 Presence of aortocoronary bypass graft; Z90.721 Acquired absence of ovaries, unilateral

== ENCOUNTER 2019-04-05 06:40 | Emergency (ER) | payer OTHER ==
[~2019-04-05] VITALS: Ht 165.1 cm; Wt 77.1 kg
[~2019-04-05 06:40] MED LIST changes: +KEFLEX500 M1 PO
[2019-04-05] MEDS ORDERED: ASPIR 8181 MG PO (06:50)
[2019-04-05] MEDS ORDERED: IBUPROFEN 800800 MG PO (09:25)
[2019-04-05] MEDS ORDERED: NORCO 5-325 TA1 EACH PO (09:25)
[2019-04-05 09:42] VITALS: BP 164/74
== END 2019-04-05 09:43 | disposition home or self-care (01) ==
LOC: M.ERS 06:40
DX: S82.141A Displaced bicondylar fracture of right tibia, initial encounter for closed fracture (principal); I10 Essential (primary) hypertension; I25.10 Atherosclerotic heart disease of native coronary artery without angina pectoris; Z87.891 Personal history of nicotine dependence; Z88.8 Allergy status to other drugs, medicaments and biological substances; Z90.721 Acquired absence of ovaries, unilateral; Z95.0 Presence of cardiac pacemaker; W18.39XA Other fall on same level, initial encounter; Y92.89 Other specified places as the place of occurrence of the external cause; Y93.89 Activity, other specified; Y99.8 Other external cause status

== ENCOUNTER → 2019-04-27 | Outpatient (CLI) | payer OTHER ==
[~2019-04-27] MED LIST changes: +IBUPROFEN 800800 M1 PO; +IBUPROFEN 800800 MG PO; +NORCO 5-325 TA1 EACH PO; +NORVASC5 M1 PO; +PRILOSEC OTC20 MG PO
== END ==
LOC: M.RAD 13:30
DX: Z13.820 Encounter for screening for osteoporosis (principal); N91.2 Amenorrhea, unspecified

== ENCOUNTER 2019-05-03 04:12 | Observation (INO) | payer OTHER ==
[~2019-05-03] VITALS: Ht 165.1 cm; Wt 79.4 kg
[~2019-05-03 04:12] MED LIST changes: -IBUPROFEN 800800 M1 PO; -NORVASC5 M1 PO; -PRILOSEC OTC20 MG PO
[2019-05-03 04:20] VITALS: BP 171/72
[2019-05-03] MEDS ORDERED: NORVASC5 M1 PO (04:28)
[2019-05-03 04:48] LABS: ABSOLUTE BASOPHILS 0.1 thou/uL (0.0-0.2); ABSOLUTE EOSINOPHILS 0.3 thou/uL (0.0-0.7); ABSOLUTE LYMPHOCYTES 1.6 thou/uL (0.8-5.3); ABSOLUTE MONOCYTES 0.5 thou/uL (0.0-1.2); EOSINOPHILS 5.7 %; HEMATOCRIT 41.9 % (37.0-47.0); HEMOGLOBIN 13.7 gm/dL (12.0-15.0); LYMPHOCYTES 29.5 %; MCH 28.7 pg (26.0-34.0); MCHC 32.6 g/dL (28.0-37.0); MONOCYTES 9.8 %; MPV 8.4 fl. (7.2-11.1); NUCLEATED RBCS 0 /100WBC; PLATELET COUNT* 208 thou/uL (150-400); RBC 4.76 mil/uL (4.20-5.00); RDW-CV 14.5 % (10.5-14.5); WBC 5.5 thou/uL (4.0-11.0)
[2019-05-03 04:56] LABS: ANION GAP 11 mmol/L (7-16); BUN 16 mg/dL (7-18); CALCIUM 9.4 mg/dL (8.5-10.1); CHLORIDE 104 mmol/L (98-107); CO2 28 mmol/L (21-32); CREATININE 0.8 mg/dL (0.6-1.3); GLUCOSE 104 mg/dL (70-99); POTASSIUM 4.2 mmol/L (3.5-5.1); SODIUM 143 mmol/L (136-145)
[2019-05-03 04:57] LABS: PROTIME 10.3 Seconds (9.20-11.50)
[2019-05-03 05:06] LABS: ALBUMIN 3.5 g/dL (3.4-5.0); ALKALINE PHOSPHATASE 81 U/L (46-116); LIPASE 294 U/L (73-393); NT-PRO BRAIN NAT PEPTIDE 356 pg/mL (<300); SGOT 22 U/L (15-37); SGPT 27 U/L (30-65); TOTAL BILIRUBIN 0.4 mg/dL (<0.1-1.0); TOTAL PROTEIN 6.8 g/dL (6.4-8.2); TROPONIN-I LEVEL <0.06 ng/mL (<0.06)
[2019-05-03 05:11] LABS: URINE BILIRUBIN NEGATIVE (Negative); URINE BLOOD TRACE (Negative); URINE CLARITY CLEAR; URINE COLOR YELLOW; URINE GLUCOSE-RANDOM NEGATIVE (Negative); URINE KETONES NEGATIVE (Negative); URINE LEUKOCYTES-REFLEX NEGATIVE (Negative); URINE NITRITE-REFLEX NEGATIVE (Negative); URINE PROTEIN NEGATIVE (Negative); URINE SPECIFIC GRAVITY 1.015 (1.005-1.030); URINE UROBILINOGEN 0.2 E.U./dl (0.2-1.0)
[2019-05-03 11:36] VITALS: BP 138/61
[2019-05-03 11:58] VITALS: BP 136/63
--- NOTE | 2019-05-03 14:51 | EKG ---
[place] [address] ELECTROCARDIOGRAM REPORT Name: KATHRINE MAGAÑA Room: [address] ADM IN .R.#: [id number] Admission: 05/03/19 Attend Phys: Law Hawk MD Discharge: Date of : 35 Report #: [id number] THIS REPORT FOR: //name// [facility] ED Test Date: 2019-05-03 Test Time: 04:21:55 Pat Name: KATHRINE MAGAÑA Department: Room: [facility] Gender: F Civil Manager: MR : 1935 Requested By: Martín Wright Order Number: [id number] MD: Dennys Torres Measurements Intervals [place] Rate: 80 P: 13 PA: 177 QRS: 4 QRSD: 89 T: 98 QT: 395 QTc: 456 Interpretive Statements Sinus rhythm Anteroseptal infarct, old, possible C Compared to ECG 11/10/2018 08:22:55 No significant changes noted Electronically Signed On 05-03-2019 14:51:45 CDT by Dennys Torres [email or web address] <ELECTRONICALLY SIGNED> By: Dennys Torres MD, [facility] 05/03/19 1451 0421 0421 Dennys Torres MD, [facility] /EPI
[2019-05-03 15:56] VITALS: BP 136/63
[2019-05-03] MEDS ORDERED: IBUPROFEN 800800 M1 PO (15:56)
[2019-05-03] MEDS ORDERED: PRILOSEC OTC20 MG PO (15:59)
[2019-05-03 16:13] VITALS: BP 140/59
== END 2019-05-03 16:41 | disposition home or self-care (01) ==
LOC: M.ERS 04:12 → M.2W 05:31 → M.TBA-ER 05:31 → M.2W 05:31
PROVIDERS: Emergency Medicine; ADMIT Internal Medicine
DX: R07.89 Other chest pain (principal); I25.10 Atherosclerotic heart disease of native coronary artery without angina pectoris; M19.90 Unspecified osteoarthritis, unspecified site; I25.2 Old myocardial infarction; I10 Essential (primary) hypertension; K21.9 Gastro-esophageal reflux disease without esophagitis; Z95.0 Presence of cardiac pacemaker; Z88.8 Allergy status to other drugs, medicaments and biological substances; Z90.722 Acquired absence of ovaries, bilateral; Z95.1 Presence of aortocoronary bypass graft; Z87.891 Personal history of nicotine dependence

== ENCOUNTER 2019-05-14 22:49 | Emergency (ER) | payer OTHER ==
[~2019-05-14] VITALS: Ht 165.1 cm; Wt 81.3 kg
[~2019-05-14 22:49] MED LIST changes: +IBUPROFEN 800800 M1 PO; +NORVASC5 M1 PO; +PRILOSEC OTC20 MG PO
[2019-05-14 23:09] LABS: ABSOLUTE BASOPHILS 0.1 thou/uL (0.0-0.2); ABSOLUTE EOSINOPHILS 0.3 thou/uL (0.0-0.7); ABSOLUTE LYMPHOCYTES 2.5 thou/uL (0.8-5.3); ABSOLUTE MONOCYTES 0.7 thou/uL (0.0-1.2); ABSOLUTE NEUTROPHILS 3.2 thou/uL (1.6-8.1); BASOPHILS 1.4 %; EOSINOPHILS 4.7 %; HEMATOCRIT 39.1 % (37.0-47.0); LYMPHOCYTES 36.4 %; MCH 29.1 pg (26.0-34.0); MCHC 33.1 g/dL (28.0-37.0); MCV 87.9 fL (80.0-100.0); MONOCYTES 10.3 %; MPV 8.5 fl. (7.2-11.1); NUCLEATED RBCS 0 /100WBC; PLATELET COUNT* 220 thou/uL (150-400); POLYS 47.2 %; RBC 4.44 mil/uL (4.20-5.00); RDW-CV 14.4 % (10.5-14.5); WBC 6.9 thou/uL (4.0-11.0)
[2019-05-14 23:20] LABS: URINE BILIRUBIN NEGATIVE (Negative); URINE BLOOD TRACE (Negative); URINE CLARITY CLEAR; URINE COLOR YELLOW; URINE GLUCOSE-RANDOM NEGATIVE (Negative); URINE KETONES NEGATIVE (Negative); URINE LEUKOCYTES-REFLEX TRACE (Negative); URINE NITRITE-REFLEX NEGATIVE (Negative); URINE PROTEIN NEGATIVE (Negative); URINE UROBILINOGEN 0.2 E.U./dl (0.2-1.0)
[2019-05-14 23:21] LABS: PROTIME 10.4 Seconds (9.20-11.50)
[2019-05-14 23:23] LABS: ANION GAP 9 mmol/L (7-16); BUN 24 mg/dL (7-18); CALCIUM 9.2 mg/dL (8.5-10.1); CHLORIDE 106 mmol/L (98-107); CO2 28 mmol/L (21-32); GLUCOSE 109 mg/dL (70-99); POTASSIUM 3.8 mmol/L (3.5-5.1); SODIUM 143 mmol/L (136-145)
[2019-05-14 23:30] LABS: CASTS None Seen /LPF (None Seen); CRYSTALS None Seen /LPF (None Seen); MUCUS 0-3 Light strn/LPF (None Seen); SQUAMOUS 0-3 Few /LPF (0-3); URINE RBC 3-10 Few /HPF (0-2); URINE WBC-REFLEX 6-15 Few /HPF (0-5)
[2019-05-14 23:34] LABS: ALBUMIN 3.5 g/dL (3.4-5.0); ALKALINE PHOSPHATASE 86 U/L (46-116); LIPASE 403 U/L (73-393); NT-PRO BRAIN NAT PEPTIDE 369 pg/mL (<300); SGOT 21 U/L (15-37); SGPT 22 U/L (30-65); TOTAL BILIRUBIN 0.2 mg/dL (<0.1-1.0); TOTAL PROTEIN 6.5 g/dL (6.4-8.2); TROPONIN-I LEVEL <0.06 ng/mL (<0.06)
[2019-05-15] MEDS ORDERED: BACTRIM DS TAB1 EACH PO (00:07)
[2019-05-15 00:28] VITALS: BP 148/64
--- NOTE | 2019-05-17 12:18 | EKG ---
[place] [address] ELECTROCARDIOGRAM REPORT Name: KATHRINE MAGAÑA Room: [facility]#: [id number] Admission: 05/14/19 Attend Phys: Discharge: 05/15/19 Date of : 35 Report #: [id number] THIS REPORT FOR: //name// [facility] ED Test Date: 2019-05-14 Test Time: 22:57:53 Pat Name: KATHRINE LINDERTERRY Department: Room: Gender: F Operations Coordinator: DE : 1935 Requested By: Debo Biswas Order Number: [id number] MD: Noble Stoner Measurements Intervals [place] Rate: 79 P: -66 [place]: 133 QRS: 6 QRSD: 103 T: 104 QT: 391 QTc: 449 Interpretive Statements Sinus or ectopic atrial rhythm LVH with secondary repolarization abnormality Anterior Q waves, possibly due to LVH Compared to ECG 05/03/2019 04:21:55 Ectopic atrial rhythm now present Left ventricular hypertrophy now present Early repolarization now present Q waves now present Electronically Signed On 05-17-2019 12:18:06 CDT by Noble Stoner [email or web address] <ELECTRONICALLY SIGNED> By: Noble Stoner MD, [facility] 05/17/19 1218 2257 2257 Noble Stoner MD, [facility] /EPI
== END 2019-05-15 00:28 | disposition home or self-care (01) ==
LOC: M.ERS 22:49
PROVIDERS: Emergency Medicine
DX: N39.0 Urinary tract infection, site not specified (principal); I10 Essential (primary) hypertension; I25.10 Atherosclerotic heart disease of native coronary artery without angina pectoris; Z95.1 Presence of aortocoronary bypass graft; Z95.0 Presence of cardiac pacemaker; Z87.891 Personal history of nicotine dependence

== ENCOUNTER 2019-08-10 20:09 | Inpatient (IN) | payer OTHER ==
[~2019-08-10] VITALS: Ht 165.1 cm; Wt 75.4 kg
[~2019-08-10 20:09] MED LIST changes: +BACTRIM DS TAB1 EACH PO
[2019-08-10 20:17] VITALS: BP 160/79
[2019-08-10 20:29] LABS: URINE BILIRUBIN NEGATIVE (Negative); URINE BLOOD TRACE (Negative); URINE CLARITY CLEAR; URINE COLOR YELLOW; URINE GLUCOSE-RANDOM NEGATIVE (Negative); URINE KETONES NEGATIVE (Negative); URINE LEUKOCYTES-REFLEX NEGATIVE (Negative); URINE NITRITE-REFLEX NEGATIVE (Negative); URINE PROTEIN NEGATIVE (Negative); URINE SPECIFIC GRAVITY <= 1.005 (1.005-1.030); URINE UROBILINOGEN 0.2 E.U./dl (0.2-1.0)
[2019-08-10 20:43] LABS: ABSOLUTE BASOPHILS 0.1 thou/uL (0.0-0.2); ABSOLUTE EOSINOPHILS 0.3 thou/uL (0.0-0.7); ABSOLUTE LYMPHOCYTES 2.1 thou/uL (0.8-5.3); ABSOLUTE MONOCYTES 0.8 thou/uL (0.0-1.2); ABSOLUTE NEUTROPHILS 3.7 thou/uL (1.6-8.1); EOSINOPHILS 3.9 %; HEMATOCRIT 39.9 % (37.0-47.0); HEMOGLOBIN 13.4 gm/dL (12.0-15.0); LYMPHOCYTES 30.4 %; MCH 29.1 pg (26.0-34.0); MCHC 33.5 g/dL (28.0-37.0); MONOCYTES 11.3 %; MPV 7.9 fl. (7.2-11.1); NUCLEATED RBCS 0 /100WBC; PLATELET COUNT* 212 thou/uL (150-400); POLYS 53.4 %; RBC 4.59 mil/uL (4.20-5.00); RDW-CV 14.8 % (10.5-14.5); WBC 6.8 thou/uL (4.0-11.0)
[2019-08-10 20:53] LABS: ANION GAP 7 mmol/L (7-16); BUN 22 mg/dL (7-18); CALCIUM 9.5 mg/dL (8.5-10.1); CHLORIDE 104 mmol/L (98-107); CO2 28 mmol/L (21-32); GLUCOSE 111 mg/dL (70-99); POTASSIUM 3.8 mmol/L (3.5-5.1); SODIUM 139 mmol/L (136-145)
[2019-08-10 20:56] LABS: APTT 26.4 Seconds (25.0-31.3); PROTIME 10.6 Seconds (9.20-11.50)
[2019-08-10 21:07] LABS: ALBUMIN 3.6 g/dL (3.4-5.0); ALKALINE PHOSPHATASE 83 U/L (46-116); NT-PRO BRAIN NAT PEPTIDE 312 pg/mL (<300); SGOT 20 U/L (15-37); SGPT 24 U/L (30-65); TOTAL BILIRUBIN 0.2 mg/dL (<0.1-1.0); TOTAL PROTEIN 6.9 g/dL (6.4-8.2); TROPONIN-I LEVEL <0.06 ng/mL (<0.06)
[2019-08-10 22:17] VITALS: BP 145/80
[2019-08-11 04:00] VITALS: BP 136/65
--- NOTE | 2019-08-11 05:03 | NUR ---
PT ADMITTED TO ROOM 220 FROM ER. ALERT AND ORIENTED. VSS ON 2L. ADMISSION HX AND ASSESSMENT DOCUMENTED. DOES NOT WEAR O2 AT HOME. ASSESSMENT DOCUMENTED. STANDBY ASSIST. ORIENTED TO ROOM AND CALL LIGHT. LAC AND RH IV. NS TO RH @100. PACEMAKER. A-PACED ON THE MONITOR. PT SLEPT MOST OF SHIFT. CALL LIGHT WITHIN REACH. HOURLY ROUNDINGS MADE. WILL CONTINUE TO MONITOR.
[2019-08-11 08:00] VITALS: BP 161/50
[2019-08-11 12:00] VITALS: BP 142/70
[2019-08-11 12:49] LABS: CHOLESTEROL 143 mg/dL (<200); HDL CHOLESTEROL 56 mg/dL (>40); LDL CHOLESTEROL 77 mg/dL (<100); TC:HDL 2.6 Ratio (Not establshd); TRIGLYCERIDE 51 mg/dL (<150); VLDL 10 mg/dL (<40)
[2019-08-11 12:50] LABS: SERUM ASSESSMENT Clear
--- NOTE | 2019-08-11 14:00 | NUR ---
PT.RESTING IN BED. ALERT AND ORIENTED. LIVES ALONE. SHE IS . SONS ARE SUPPORTIVE. SHE IS INDEPENDENT. NO USE OF DME. NO HX OF HH OR SNF. SHE DRIVES, COOKS,SHOPS,CLEANS,ETC. SHE SAID SHE IS NOT LIGHTHEADED TODAY. CM WILL FOLLOW. SONS HONG AND BUD ARE HER DPOAS.
--- NOTE | 2019-08-11 14:01 | 2DMMODE ---
[place] [address] 2 D/M-MODE ECHOCARDIOGRAM Name: KATHRINE MAGAÑA Room: [address] IN [facility]#: [id number] Admission: 08/10/19 Attend Phys: Law Hawk, Discharge: Date of : 35 Date of Service: 08/11/19 1401 Report #: [id number] THIS REPORT FOR: //name// APPROVED REPORT Study performed: 08/11/2019 11:52:41 EXAM: Comprehensive 2D, Doppler, and color-flow Echocardiogram Patient Location: In-Patient Room #: 220 Status: routine BSA: 1.84 HR: 67 bpm BP: 161/50 mmHg Rhythm: NSR Other Information Study Quality: Good Indications Dizzy 2D Dimensions IVSd: 10.83 (7-11mm) LVOT Diam: 21.32 (18-24mm) LVDd: 42.57 mm PWd: 7.96 (7-11mm) Ascending Ao: 30.05 (22-36mm) LVDs: 24.48 (25-40mm) Aortic Root: 32.58 mm Volumes Left Atrial Volume (Systole) LA ESV Index: 29.80 mL/m2 Aortic Valve AoV Peak Que.: 1.41 m/s AO Peak Gr.: 7.90 mmHg LVOT Max P.20 mmHg AO Mean Gr.: 4.78 mmHg LVOT Mean P.96 mmHg LVOT Max V: 1.34 m/s AO V2 VTI: 30.13 cm LVOT Mean V: 0.93 m/s SUSI (VTI): 3.60 cm2 LVOT V1 VTI: 30.35 cm Mitral Valve E/A Ratio: 1.09 MV Decel. Time: 198.91 ms MV E Max Que.: 0.77 m/[place] [address] 2 D/M-MODE ECHOCARDIOGRAM Name: KATHRINE MAGAÑA Room: [address] IN [facility]#: [id number] Admission: 08/10/19 Attend Phys: Law Hawk, Discharge: Date of : 35 Date of Service: 08/11/19 1401 Report #: [id number] MV PHT: 57.68 ms MVA (PHT): 3.81 cm2 TDI E/Lateral E': 6.42 E/Medial E': 8.56 Medial E' Que.: 0.09 m/s Lateral E' Que.: 0.12 m/s Pulmonary Valve PV Peak Que.: 0.92 m/s PV Peak Gr.: 3.41 mmHg Tricuspid Valve RAP Estimate: 5.00 mmHg TR Peak Gr.: 24.38 mmHg RVSP: 29.00 mmHg PA Pressure: 29.00 mmHg Left Ventricle The left ventricle is normal size. There is normal LV segmental wall motion. There is normal left ventricular wall thickness. Left ventricular systolic function is normal. The left ventricular ejection fraction is within the normal range. LVEF is 55-60%. Grade I - abnormal relaxation pattern. Right Ventricle The right ventricle is normal size. The right ventricular systolic function is normal. Pacemaker lead is present in the right ventricle. Atria The left atrium size is normal. The right atrium size is normal. Aortic Valve Mild aortic valve sclerosis. Trace aortic regurgitation. There is no aortic valvular stenosis. Mitral Valve The mitral valve is normal in structure. Trace mitral regurgitation. No evidence of mitral valve stenosis. Tricuspid Valve The tricuspid valve is normal in structure. Mild tricuspid regurgitation. No pulmonary hypertension. Pulmonic Valve The pulmonary valve is normal in structure. There is no pulmonic [place] [address] 2 D/M-MODE ECHOCARDIOGRAM Name: KATHRINE MAGAÑA Room: [address]#: [id number] Admission: 08/10/19 Attend Phys: Law Hawk, Discharge: Date of : 35 Date of Service: 08/11/19 1401 Report #: [id number] Great Vessels The aortic root is normal in size. IVC is normal in size and collapses >50% with inspiration. Pericardium There is no pericardial effusion. <Conclusion> The left ventricle is normal size. There is normal left ventricular wall thickness. Left ventricular systolic function is normal. The left ventricular ejection fraction is within the normal range. LVEF is 55-60%. Grade I - abnormal relaxation pattern. The right ventricle is normal size. The left atrium size is normal. Mild aortic valve sclerosis. Trace aortic regurgitation. There is no aortic valvular stenosis. The mitral valve is normal in structure. The tricuspid valve is normal in structure. IVC is normal in size and collapses >50% with inspiration. There is no pericardial effusion. There is normal LV segmental wall motion. <ELECTRONICALLY SIGNED> By: Noble Stoner MD, FACC 08/11/19 140 00 00 Noble Stoner MD, FACC /INF
--- NOTE | 2019-08-11 14:07 | EKG ---
[place] [address] ELECTROCARDIOGRAM REPORT Name: KATHRINE MAGAÑA Room: [address] ADM IN .R.#: [id number] Admission: 08/10/19 Attend Phys: Law Hawk MD Discharge: Date of : 35 Report #: [id number] THIS REPORT FOR: //name// [facility] ED Test Date: 2019-08-10 Test Time: 20:21:31 Pat Name: KATHRINE LINDERTERRY Department: Room: [facility] Gender: F Spring Coiler Hand: VALLADARES : 1935 Requested By: Scooter Barrera Order Number: [id number] MD: Noble Stoner Measurements Intervals [place] Rate: 78 P: [place]: 133 QRS: 34 QRSD: 88 T: 101 QT: 385 QTc: 439 Interpretive Statements Atrial-paced complexes with PAC Anteroseptal infarct, age indeterminate possible Baseline wander in lead(s) III Compared to ECG 05/14/2019 22:57:53 Myocardial infarct finding now present Ectopic atrial rhythm no longer present Left ventricular hypertrophy no longer present Early repolarization no longer present Q waves no longer present Electronically Signed On 08-11-2019 14:06:52 CDT by Noble Stoner [email or web address] <ELECTRONICALLY SIGNED> By: Noble Stoner MD, [facility] 08/11/19 1406 20 20 Noble Stoner MD, [facility] /EPI
--- NOTE | 2019-08-11 14:41 | NUR ---
ASSUMED PT CARE AT 0800, AOX4, UP SBA, O2 SAT 90'S RA. TRACING SR ON TELE. PT HAS PACEMAKER. PT COMPLAINS OF BACK PAIN. MEDS GIVEN. PT HAD ECHO, EEG, FOR US CAROTID, MRI. PT HAS NEUROLOGY CONSULT. LAST BM 08/10/19. LUNG SOUND CLEAR. VSS, AM ASSESSMENT CHARTED, HOURLY ROUNDING, CALL LIGHT WITHIN REACH, WILL CONTINUE TO MONITOR.
[2019-08-11 16:00] VITALS: BP 125/58
[2019-08-11 20:00] VITALS: BP 121/49
[2019-08-12 00:39] VITALS: BP 145/68
[2019-08-12 00:47] VITALS: BP 148/65; BP 151/68
--- NOTE | 2019-08-12 01:32 | NUR ---
PT ALERT ORIENTED. UP AD JOSE IN ROOM. SCHEDULED IBUPROFEN FOR BARKER. MELATONIN GIVEN FOR SLEEP. ORTHOSTATIC BP UNREMARKABLE. 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 NS AT 100M,LS/HR.
[2019-08-12 04:00] VITALS: BP 143/56
[2019-08-12 04:27] LABS: HEMATOCRIT 38.5 % (37.0-47.0); HEMOGLOBIN 12.7 gm/dL (12.0-15.0); MCH 28.7 pg (26.0-34.0); MCHC 32.9 g/dL (28.0-37.0); MCV 87.1 fL (80.0-100.0); MPV 7.9 fl. (7.2-11.1); RBC 4.42 mil/uL (4.20-5.00); RDW-CV 14.7 % (10.5-14.5); WBC 5.2 thou/uL (4.0-11.0)
[2019-08-12 04:37] LABS: ALBUMIN 3.1 g/dL (3.4-5.0); CALCIUM 9.4 mg/dL (8.5-10.1); CREATININE 0.8 mg/dL (0.6-1.3); POTASSIUM 4.3 mmol/L (3.5-5.1); TOTAL BILIRUBIN 0.4 mg/dL (<0.1-1.0)
[2019-08-12 07:37] VITALS: BP 145/61
--- NOTE | 2019-08-12 08:34 | NUR ---
ASSUMED CARE OF PT THIS AM AROUND 714- BURRING WHEEL OPERATOR IN PLACE ORDERED, TRACING A-PACED WITH NOTED PACE MAKER- UPON ASSESSMENT PT NOTED TO BE RESTINF IN BED, WATCHING TV- PT A&O X4- CONTINENT OF B/B- SBA WITH TRANSFERS FOR SAFETY- LCTA, RESP EVEN AND UN-LABORED- NON-PRODUCTIVE COUGH NOTED- VSS, O2 SAT 97% ON RA- ABD SOFT/ROUND/NON-TENDER, BS X4 QUADS- LAST BM REPORTED 08/11/19- IV NOTED TO RIGHT HAND INTACT, IVF INFUSSING PRESCIBED- PT RATES HEADACHE 01/10 THIS AM, COFFEE GIVEN WITH DIMMED LIGHTS- CALL LIGHT AND PERSONAL BELONGINGS WITH IN REACH- HOURLY ROUNDS IN PLACE R/T SAFETY/NEEDS- ALL NEEDS MET AT THIS TIME-WCTM
[2019-08-12 09:37] VITALS: BP 145/61
[2019-08-12 12:04] VITALS: BP 138/66
[2019-08-12] MEDS ORDERED: PNV 29-1 TABLE1 EACH PO (12:15)
--- NOTE | 2019-08-12 12:27 | NUR ---
ORDERS RECEIVED FOR PETER TO D/C HOME WITH MRI TO BE COMPLETED OP PER DR. GARRETT AND DR.KUMAR GREEN WITH PLAN- IV TO RIGHT HAND D/C'D ALONG WITH MR TEACHER PRIOR TO D/C- D/C EDUCATION/TEACHING/FOLLOW UP'S COMMUNICATED TO PT AND DAUGHTER PRIOR TO D/C WITH ALL QUESTIONS AND CONCERNS ADDRESSED PRIOR TO D/C- WRITTEN EDUCATION GIVEN TO PT PRIOR TO D/C- BELONGINGS PACKED AND ACCOUNTED FOR PER PT AND DAUGHTER PRIOR TO D/C- PT ESCORTED PER TECH VIA W/C WITH BELONGINGS; DAUGHTER AT SIDE TO VEHICLE AT 1230- NO PROBLEMS TO NOTE AT TIME OF D/C
--- NOTE | 2019-08-12 13:24 | EKG ---
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 [place]: [facility] : 1935 Requested By: Qamar Dugan Order Number: [id number] MD: Dennys Torres Measurements Intervals [place] Rate: 65 P: -50 NM: 121 QRS: 13 QRSD: 102 T: 63 QT: 420 QTc: 437 Interpretive Statements Atrial-paced complexes Possible anteroseptal infarct, old Compared to ECG 08/10/2019 20:21:31 No significant changes Electronically Signed On 08-12-2019 13:24:19 CDT by Dennys Torres [email or web address] <ELECTRONICALLY SIGNED> By: Dennys Torres MD, FACC 08/12/19 1324 0426 0426 Dennys Torres MD, FACC /EPI
--- NOTE | 2019-08-21 19:25 | EEG ---
[address] [address] EEG STUDY REPORT Name: KATHRINE MAGAÑA Room: [address]#: [id number] Admission: 08/10/19 Attend Phys: Law Hawk MD Discharge: 08/12/19 Date of : 35 Report #: [id number] THIS REPORT FOR: //name// CC: Law Arechiga DATE OF SERVICE: 08/11/2019 This patient is having episodes of dizziness. EEG is being done to evaluate the patient for any seizure disorder. The patient's EEG demonstrates a background activity of about 10 Hz and 40 microvolts. The patient became drowsy and that is associated with bilateral slowing and vertex sharp waves. Photic stimulation is unremarkable. Throughout the record, no active epileptiform activity was noticed. IMPRESSION: This patient's EEG is within normal limits. Thank you very much for this referral. <ELECTRONICALLY SIGNED> By: Cj Cook MD 08/21/19 1925 1005 1011Psumeet Cook MD /nt
--- NOTE | 2019-08-21 19:25 | CON ---
[address] [address] CONSULTATION Name: GÓMEZKATHRINE B Room: [address] IN ..#: [id number] Admission: 08/10/19 Attend Phys: Law Hawk MD Discharge: 08/12/19 Date of : 35 Report #: [id number] THIS REPORT FOR: //name// CC: Law Arechiga DATE OF SERVICE: 08/11/2019 HISTORY OF PRESENT ILLNESS: This is an 83-year-old female patient who was evaluated by me for pretty unstructured symptoms. She gives a history that she has some generalized weakness, some dizziness. This started spontaneously yesterday without any trauma. She had some frequent urination and diarrhea. She feels better today than she did yesterday. She does not know any aggravating or relieving factors for this. REVIEW OF SYSTEMS: Positive for pacemaker and coronary artery disease, which was treated by CABG. She was somewhat lightheaded when she came in. She is feeling better. She has a history of hypertension. She has no prior history of stroke. She does not think that she has any new eye, ENT, cardiac, respiratory, GI, , musculoskeletal, constitutional, dermatological, hematological, psychiatric, throat, allergic symptom associated with present symptomatology. PAST MEDICAL HISTORY: Negative for any stroke. FAMILY HISTORY: Negative for any early age stroke. SOCIAL HISTORY: She denies the use of alcohol. PHYSICAL EXAMINATION: Indicates she is alert, responsive, oriented, able to follow simple and complex command. Her speech, concentration, fund of knowledge and memory is intact. Cranial nerve examination 2-12 looks unremarkable. She has symmetrical strength, sensation, reflexes and tone in all 4 extremities. There is no meningeal sign. I could not look at the patient's fundus. The patient is reasonably well-developed individual. Her pulses are palpable. She has no edema, cyanosis or jaundice. Blood pressure is 161/50, respiration is 18, pulse is 72, temperature is 97.4. LABORATORY DATA: White count was 6.4. GFR is 53. BUN is somewhat high at 22. She did have a CT scan of the head that appear unremarkable. IMPRESSION: This patient complained of generalized symptoms without any lateralizations. I suspect it may be because of the patient's dehydration she had because of the diarrhea, etc. She is getting better. We will watch her. If pacemaker is compatible with MRI, then we will get an MRI and M[place] [address] CONSULTATION Name: KATHRINE MAGAÑA Room: [address]#: [id number] Admission: 08/10/19 Attend Phys: Law Hawk MD Discharge: 08/12/19 Date of : 35 Report #: [id number] just got the dye for CT chest and I will not give her dye today. She wants to follow this plan and we will follow this patient along with you. <ELECTRONICALLY SIGNED> By: Cj Cook MD 08/21/19 1925 1148 1159Pararpita Cook MD /nt
== END 2019-08-12 12:30 | disposition home or self-care (01) | DRG 312 ==
LOC: M.ERS 20:09 → M.2W 21:36 → M.TBA-ER 21:36 → M.2W 22:50
PROVIDERS: Family Medicine; Internal Medicine; ADMIT Internal Medicine
DX: I95.1 Orthostatic hypotension (principal); E44.1 Mild protein-calorie malnutrition; I10 Essential (primary) hypertension; I25.10 Atherosclerotic heart disease of native coronary artery without angina pectoris; I25.2 Old myocardial infarction; Z95.1 Presence of aortocoronary bypass graft; Z95.0 Presence of cardiac pacemaker; Z90.721 Acquired absence of ovaries, unilateral; Z87.891 Personal history of nicotine dependence; Z82.49 Family history of ischemic heart disease and other diseases of the circulatory system; Z90.49 Acquired absence of other specified parts of digestive tract; Z79.82 Long term (current) use of aspirin; Z79.899 Other long term (current) drug therapy; Z23 Encounter for immunization; Z68.27 Body mass index [BMI] 27.0-27.9, adult

== ENCOUNTER 2020-05-06 04:48 | Inpatient (IN) | payer OTHER ==
[~2020-05-06] VITALS: Ht 165.1 cm; Wt 81.6 kg
[~2020-05-06 04:48] MED LIST changes: +PNV 29-1 TABLE1 EACH PO
[2020-05-06 04:52] VITALS: BP 166/70
[2020-05-06 05:53] LABS: ABSOLUTE BASOPHILS 0.1 thou/uL (0.0-0.2); ABSOLUTE EOSINOPHILS 0.3 thou/uL (0.0-0.7); ABSOLUTE LYMPHOCYTES 1.9 thou/uL (0.8-5.3); ABSOLUTE MONOCYTES 0.5 thou/uL (0.0-1.2); ABSOLUTE NEUTROPHILS 2.9 thou/uL (1.6-8.1); BASOPHILS 0.9 %; EOSINOPHILS 4.9 %; HEMATOCRIT 40.5 % (37.0-47.0); HEMOGLOBIN 13.6 gm/dL (12.0-15.0); LYMPHOCYTES 34.1 %; MCH 29.7 pg (26.0-34.0); MCHC 33.5 g/dL (28.0-37.0); MCV 88.7 fL (80.0-100.0); MONOCYTES 9.6 %; MPV 8.4 fl. (7.2-11.1); NUCLEATED RBCS 0 /100WBC; PLATELET COUNT* 202 thou/uL (150-400); POLYS 50.5 %; RBC 4.57 mil/uL (4.20-5.00); RDW-CV 15.3 % (10.5-14.5); WBC 5.7 thou/uL (4.0-11.0)
[2020-05-06 06:00] LABS: APTT 27.4 Seconds (25.0-31.3); PROTIME 10.7 Seconds (9.20-11.50)
[2020-05-06 06:06] LABS: URINE BILIRUBIN NEGATIVE (Negative); URINE BLOOD NEGATIVE (Negative); URINE CLARITY CLEAR; URINE COLOR YELLOW; URINE GLUCOSE-RANDOM NEGATIVE (Negative); URINE KETONES NEGATIVE (Negative); URINE LEUKOCYTES-REFLEX NEGATIVE (Negative); URINE NITRITE-REFLEX NEGATIVE (Negative); URINE PROTEIN NEGATIVE (Negative); URINE UROBILINOGEN 0.2 E.U./dl (0.2-1.0)
[2020-05-06 06:06] LABS: ALBUMIN 3.6 g/dL (3.4-5.0); CALCIUM 8.9 mg/dL (8.5-10.1); POTASSIUM 4.3 mmol/L (3.5-5.1); TOTAL BILIRUBIN 0.6 mg/dL (<0.1-1.0); TOTAL PROTEIN 6.9 g/dL (6.4-8.2)
[2020-05-06 07:53] VITALS: BP 149/64
[2020-05-06 08:00] VITALS: BP 136/62
[2020-05-06 12:00] VITALS: BP 126/57; BP 146/69; BP 161/65
[2020-05-06 16:32] VITALS: BP 126/45
--- NOTE | 2020-05-06 19:00 | NUR ---
ASSUMED PT CARE FROM ER AROUND 0800. ASSESSMENT COMPLETED CHARTED. ABLE TO MAKE NEEDS KNOWN. UP SBA. ORTHOSTATICS NEGATIVE. RESTING IN BED MOST OF THE DAY. STARTED IV FLUIDS PER EMAR AND PT TO BATHROOM SEVERAL TIMES SINCE THEN. NO C/O PAIN OR DISCOMFORT. WILL CONTINUE TO MONITOR.
[2020-05-06 20:00] VITALS: BP 132/68
[2020-05-07] VITALS: BP 156/57
[2020-05-07 04:00] VITALS: BP 164/70
--- NOTE | 2020-05-07 05:55 | NUR ---
PT CARE ASSUMED AT 1930. SAT MAINTAINED IN RA. ALERT AND ORIENTED X4. C/O PAIN, MEDICATION GIVEN PER EMAR. CALL LIGHT WITHIN REACH AND BED IN LOW POSITION. HOURLY ROUNDING DONE FOR PT SAFETY.
[2020-05-07 08:00] VITALS: BP 127/70
[2020-05-07 13:00] VITALS: BP 127/70
--- NOTE | 2020-05-07 14:30 | NUR ---
ASSUMED PT CARE AT 0730. ASSESSMENT COMPLETED CHARTED. ABLE TO MAKE NEEDS KNOWN. UP WITH SBA DUE TO "LIGHTHEADEDNESS". PT UPSET AND CRYING THIS MORNING WANTING TO GO HOME. NO C/O PAIN OR DISCOMFORT. NOTIFIED AND STATED SHE NEEDS A CTA BEFORE SHE CAN GO HOME. PT CALLED OUT EVERY 30 MINS ASKING WHEN THE TESTING IS GOING ON. TESTING COMPLETED AND THEN SHE GOT DRESSED AND WAITED BY THE NURSES DESK FOR DISCHARGE PAPERS TO GO OVER WITH. IV AND HEART MONITOR REMOVED AND WHEELED DOWN TO RIDE AT AROUND 1420. NO COMMENTS QUESTIONS OR CONCERNS NOTED.
--- NOTE | 2020-05-08 15:27 | EKG ---
[place] [address] ELECTROCARDIOGRAM REPORT Name: KATHRINE MAGAÑA Room: [address] IN .R.#: [id number] Admission: 05/06/20 Attend Phys: Tony johnson Sa Discharge: 05/07/20 Date of : 35 Date of Service: 05/06/20 0506 Report #: [id number] THIS REPORT FOR: //name// [facility] ED Test Date: 2020-05-06 Test Time: 05:06:07 Pat Name: KATHRINE MAGAÑA Department: Room: [facility] Gender: F News Internship: NICOLE : 1935 Requested By: Brenda Hanks Order Number: [id number] MD: Noble Stoner Measurements Intervals [place] Rate: 73 P: -54 [place]: 177 QRS: 12 QRSD: 86 T: 96 QT: 410 QTc: 452 Interpretive Statements Sinus rhythm Atrial premature complex Anteroseptal infarct, age indeterminate possible Compared to ECG 08/12/2019 04:26:10 Atrial premature complex(es) now present Atrial-paced complex(es) or rhythm no longer present Myocardial infarct finding still present Electronically Signed On 05-08-2020 15:26:47 CDT by Noble Stoner [email or web address] <ELECTRONICALLY SIGNED> By: Noble Stoner MD, [facility] 05/08/20 1526 0506 0506 Noble Stoner MD, [facility] /EPI
== END 2020-05-07 14:22 | disposition home or self-care (01) | DRG 641 ==
LOC: M.ERS 04:48 → M.TBA-ER 06:30 → M.2W 06:30
PROVIDERS: Personal Emergency Response Attendant; ADMIT Family Medicine; ATTEND Family Medicine
DX: E86.0 Dehydration (principal); I10 Essential (primary) hypertension; I25.10 Atherosclerotic heart disease of native coronary artery without angina pectoris; I49.5 Sick sinus syndrome; E78.5 Hyperlipidemia, unspecified; F32.9 Major depressive disorder, single episode, unspecified; I25.2 Old myocardial infarction; Z95.1 Presence of aortocoronary bypass graft; Z90.49 Acquired absence of other specified parts of digestive tract; Z95.0 Presence of cardiac pacemaker; Z87.891 Personal history of nicotine dependence; Z79.899 Other long term (current) drug therapy; Z03.818 Encounter for observation for suspected exposure to other biological agents ruled out